=== PATIENT | female | born 1960 | race African-American/Black ===

== ENCOUNTER 2016-08-02 08:04 | Emergency (ER) ==
[2016-08-02] MEDS ORDERED: LASIX IV ONE (08:15)
[2016-08-02] MEDS ORDERED: NITROGLYCERIN TOP ONE (08:20)
[2016-08-02] MEDS ORDERED: LASIX ONE ×2 (08:21→08:27)
[2016-08-02] MEDS ORDERED: NITROGLYCERIN ONE (08:21)
[2016-08-02 08:23] VITALS: BP 197/123
--- NOTE | 2016-08-02 09:01 | Diag Imaging Result Document ---
PROCEDURE NAME: CHEST-PORTABLE - 08/02/2016 PORTABLE CHEST: COMPARISON: Compared to 06/21/2016. FINDINGS: The lungs are well expanded. There is a left sided pacemaker. The heart is mildly prominent. The vessels are not distended. No consolidation. No pleural effusions identified. IMPRESSION: Stable mild cardiomegaly. [facility]
[2016-08-02 09:08] LABS: MANUAL DIFF NEEDED? NO
[2016-08-02 09:11] LABS: BASO% 0.8 % (0.0-0.8); EOS# 0.25 X1000 (0.0-0.7); EOS% 3.8 % (0.0-10.0); HEMATOCRIT 41.9 % (37.0-47.0); HEMOGLOBIN 13.7 g/dL (12.0-16.0); IMM GRAN# 0.01 X1000 (0.0-0.04); IMM GRAN% 0.2 % (0.0-0.5); LYMPH# 1.79 X1000 (1.2-3.4); LYMPH% 27.1 % (20.5-51.1); MCH 32.1 PG (27-31); MCHC 32.7 g/dL (33-37); MCV 98.1 FL (81-99); MONO# 0.24 X1000 (0.11-0.59); MONO% 3.6 % (1.7-9.3); MPV 10.3 FL (7.4-10.4); NEUT% 64.5 % (42.2-75.2); PLT 225 X1000 (130-400); RBC 4.27 XMIL (4.2-5.4)
[2016-08-02 09:35] LABS: AGAP 16; ALBUMIN 4.7 g/dL (3.5-5.0); ALKALINE PHOSPHATASE 93 U/L (32-104); BUN 16 mg/dL (8-22); CALCIUM 10.1 mg/dL (8.8-10.2); CHLORIDE 104 mmol/L (98-107); CK PROFILE 106 U/L (24-173); COSMO 289; GOT 30 U/L (10-30); GPT 32 U/L (10-36); MAGNESIUM 1.8 mg/dL (1.5-2.7); POTASSIUM 3.3 mmol/L (3.5-5.1); SODIUM 144 mmol/L (136-145); TCO2 25 mmol/L (25-35)
--- NOTE | 2016-08-02 09:47 | EKG Report ---
Test Performed on : 08/02/2016 08:31:27 AM Test Reason : CHEST PAIN Blood Pressure : / mmHG Vent. Rate : 084 BPM Atrial Rate : 084 BPM P-R Int : 160 ms QRS Dur : 108 ms QT Int : 402 ms P-R-T Axes : 047 031 031 degrees QTc Int : 475 ms Normal sinus rhythm. Biatrial enlargement Incomplete left bundle branch block ST & T wave abnormality, consider lateral ischemia Prolonged QT Abnormal ECG When compared with ECG of 21-JUN-2016 06:30, No significant change was found Unconfirmed Result
[2016-08-02 09:48] LABS: INR 0.91 (0.86-1.15); PROTIME 12.6 Seconds (12.1-15.5)
[2016-08-02 09:49] LABS: PTT PL 35.5 Seconds (22.6-43.9)
--- NOTE | 2016-08-02 10:28 | PROVIDER DOCUMENTATION ---
HPI-Abdominal Pain/GI Problem <Jordan Wong - Last Filed: 08/02/16 11:33> - General Source: patient - History of Present Illness-ABD Nature of Presenting Problems: 56 yo AAF presents to ED with cc of RLQ pain and SOB. Pt has hx of CHF. Pt states she awoke at 0300 with RLQ pain and became SOB. Upon arrival to ED, pt is in mild distress. Abdominal Pain Onset Location: reports: RLQ Pain Radiation: reports: no radiation Severity in ED: reports: moderate Onset/Duration: reports: abrupt, 4-6 hours ago Timing: reports: still present Activities at Onset: reports: none Associated Symptoms: reports: constipation Rectal Pain: reports: none <Trisha Miramontes - Last Filed: 08/02/16 11:38> - General Chief Complaint: Shortness of Breath Stated Complaint: dyspnea Time Seen by Provider: 08/02/16 09:31 Allergies/Adverse Reactions: Patient Allergies Allergy/AdvReac Type Severity Reaction Status Date / Time promethazine HCl * Allergy JERKING Verified 06/21/16 06:12 [From Phenergan] Home Medications: Home Medication List Medication Instructions Recorded Confirmed Last Taken Type Buspirone [Buspar] 10 mg PO TID PRN 10/08/13 06/21/16 05/04/16 08:00 History Clopidogrel [Plavix] 75 mg PO DAILY 10/08/13 06/21/16 1 Day Ago History Omeprazole 20 mg PO DAILY@0700 10/08/13 06/22/16 1 Day Ago History Pregabalin [Lyrica] 225 mg PO QHS 10/08/13 06/21/16 1 Day Ago History ATORVAstatin [Lipitor] 80 mg PO DAILY #0 tablet 11/13/13 06/21/16 1 Day Ago Rx Aspirin [Ecotrin] 81 mg PO DAILY 01/18/14 06/21/16 1 Day Ago History Trazodone [Desyrel] 200 mg PO QHS 08/09/15 06/21/16 1 Day Ago History Ferrous Sulfate E.r. [Slow-Fe] 160 mg PO BID 01/01/16 06/21/16 1 Day Ago History Potassium Chloride 20 meq PO DAILY 01/01/16 06/21/16 1 Day Ago History Meloxicam [Mobic] 7.5 mg PO BID PRN 05/04/16 06/21/16 1 Day Ago History Tizanidine [Zanaflex] 12 mg PO QHS 05/04/16 06/21/16 1 Day Ago History Tramadol [Ultram] 50 mg PO BID 06/21/16 06/21/16 1 Day Ago History Aspirin [Aspirin EC] 81 mg PO DAILY 06/22/16 06/22/16 Unknown History CefDINIR [Omnicef] 300 mg PO BID #14 capsule 06/22/16 Unknown Rx Furosemide [Lasix] 20 mg PO DAILY PRN PRN 06/22/16 06/22/16 06/20/16 History Ondansetron HCl 4 mg PO Q8H PRN PRN 06/22/16 06/22/16 Unknown History Sacubitril/Valsartan [Entresto 24 1 each PO BID #60 tablet 06/22/16 Unknown Rx mg-26 mg Tablet] Acetaminophen with Codeine 1 each PO Q6H PRN PRN #20 tablet 08/02/16 Unknown Rx [Tylenol with Codeine #3 Tablet] Review of Systems - Adult - REVIEW OF SYSTEMS - ADULT Constitutional: reports: no symptoms reported. denies: chills, fever Eyes: reports: no symptoms reported. denies: blurred vision, double vision Ears, Nose, Mouth & Throat: reports: no symptoms reported. denies: ear discharge, sinus problem Cardiovascular: reports: no symptoms reported. denies: chest pain, palpitations Respiratory: reports: shortness of breath Gastrointestinal: reports: abdominal pain (RLQ) Genitourinary: reports: no symptoms reported. denies: discharge, flank pain Musculoskeletal: reports: no symptoms reported. denies: bone pain, joint pain Integumentary: reports: no symptoms reported. denies: hives, itching Neurological: reports: no symptoms reported. denies: ataxia, loss of balance Psychiatric: reports: no symptoms reported. denies: anxiety, depression Endocrine: reports: no symptoms reported. denies: cold intolerance, heat intolerance Hematologic/Lymphatic: reports: no symptoms reported. denies: blood clots, low blood count Allergic/Immunologic: reports: no symptoms reported. denies: allergic reactions , eczema All Other Systems: Reviewed and Negative <Trisha Miramontes - Last Filed: 08/02/16 11:38> Past History - Adult - PAST MEDICAL HISTORY-ADULT Review of Records: reports: Old Records Reviewed, Nursing Assessment Review, Medications Reviewed Major Childhood Illnesses: reports: denies history Cardiovascular: reports: CAD, CHF (LAST EF OF 20% 06/11/2016 ), HTN, hyperlipidemia, pacemaker (defib), other Respiratory: reports: denies history, other (PULMONARY HTN) Gastrointestinal: reports: GERD Obstetrical/Gynecological: reports: denies history Genitourinary: reports: denies history Musculoskeletal: reports: other (fibromyalgia) Neurological: reports: CVA (10/2013) Endocrine/Immune: reports: thyroid disorder (hypo) Other Conditions: reports: denies history - PRIOR SURGERIES/PROCEDURES Surgical/Procedure History: reports: cardiac stent, hysterectomy, other ( defibulator placement/endarectomy) - PRIOR HOSPITALIZATIONS Prior Hospitalizations: reports: none - IMMUNIZATION STATUS Childhood Immunizations: UTD, See Nurse Assessment Flu Vaccine: See Nurse Assessment - FAMILY HISTORY Family History: reviewed, not pertinent <Trisha Miramontes - Last Filed: 08/02/16 11:38> Physical Exam-General - PHYSICAL EXAM-ADULT Initial Vital Signs Reviewed: Yes - CONSTITUTIONAL General Appearance: alert, mild distress - EYES Eyes: PERRL/EOMI, pink conjunctivae - HEAD, EARS, NOSE, MOUTH & THROAT HENMT: normocephalic/atraumatic, moist mucous membranes - NECK Neck: non-tender, full range of motion, supple - RESPIRATORY Respiratory: no respiratory distress, no accessory muscle use - CARDIOVASCULAR Cardiovascular: normal peripheral pulses, regular rate, rhythm - CHEST (BREASTS) Chest/Breast: deferred - GASTROINTESTINAL (ABDOMEN) Abdominal Exam: normal bowel sounds, non tender, soft - GENITOURINARY Female Genitalia/Pelvic Exam: deferred Rectal Exam: normal exam Hemoccult Exam: heme negative stool - LYMPHATIC Lymphatic: no adenopathy - MUSCULOSKELETAL Back Exam: normal inspection, no CVA tenderness, no vertebral tenderness Extremity: normal range of motion, non-tender, normal gait - SKIN Integumentary: normal color, normal turgor, warm/dry - NEUROLOGIC Neurologic: grossly normal, no motor/sensory deficits - PSYCHIATRIC Psych/Mental Status: normal mood/affect, normal thought content, normal thought process, oriented x 3 <Trisha Miramontes - Last Filed: 08/02/16 11:38> Progress - PLAN OF CARE/RESULTS Progress/Plan/Lab Results: Vital Signs - 24 hr 08/02/16 08:07 Temperature 98 F Pulse Rate 87 Respiratory 24 Rate Blood Pressure 197/123 O2 Sat by Pulse 93 L Oximetry Orders Category Date Time Status Cardiac Monitoring DIRECTED Care 08/02/16 08:25 Active Oxygen Therapy- ED Nursing DIRECTED Care 08/02/16 08:25 Active Saline Loc NOW Care 08/02/16 08:25 Active ABDOMEN FLAT/UPRIGHT [RAD] Stat Exams 08/02/16 10:22 Draft CHEST-PORTABLE [RAD] Stat Exams 08/02/16 08:25 Draft cxr [CHEST-2 VIEWS] [RAD] Stat Exams 08/02/16 10:23 Draft CBC WITH ELECTRONIC DIFF [HEME] Stat Lab 08/02/16 08:45 Completed CK PROFILE [SP CHEM] Stat Lab 08/02/16 08:45 Completed COMPREHENSIVE METABOLIC PANEL [CHEM] Stat Lab 08/02/16 08:45 Completed MAGNESIUM [CHEM] Stat Lab 08/02/16 08:45 Completed OCCULT BLOOD SCREEN STOOL PL Stat Lab 08/02/16 10:13 Completed PRO B-NATRIURETIC PEPTIDE Stat Lab 08/02/16 08:[address]IME WITH INR [address] [COAG] Stat Lab 08/02/16 08:[address] [COAG] Stat Lab 08/02/16 08:45 Completed TROPONIN T Stat Lab 08/02/16 08:45 Completed UA [URINALYSIS DIPSTICK ONLY PL] [URINALYSIS] Stat Lab 08/02/16 10:58 Completed Furosemide [Lasix] Med 08/02/16 08:27 Discontinued 100 mg .ROUTE .STK-MED ONE Furosemide [Lasix] Med 08/02/16 08:21 Discontinued 80 mg .ROUTE .STK-MED ONE Furosemide [Lasix] Med 08/02/16 08:15 Discontinued 80 mg IV NOW ONE Nitroglycerin Med 08/02/16 08:21 Discontinued 1 inch .ROUTE .STK-MED ONE Nitroglycerin Med 08/02/16 08:20 Discontinued 1 inch TOP NOW ONE EKG [EKG] Stat Ther 08/02/16 08:25 Draft Laboratory Tests 08/02/16 08/02/16 08/02/16 08:45 08:45 08:45 WBC RBC Hgb Hct MCV MCH MCHC RDW Std Deviation Plt Count MPV Immature Gran % (Auto) Neut % (Auto) Lymph % (Auto) [place] % (Auto) Eos % (Auto) Baso % (Auto) Immature Gran # (Auto) Neut # (Auto) Lymph # (Auto) [place] # (Auto) Eos # (Auto) Baso # (Auto) PT INR APTT (Factor Assay) Sodium 144 Potassium 3.3 L Chloride 104 Carbon Dioxide 25 Anion Gap 16 BUN 16 Creatinine 0.9 Estimated GFR/1.73 m2 > 60 BUN/Creatinine Ratio 18 Glucose 124 H Calculated Osmolality 289 Calcium 10.1 Magnesium 1.8 Total Bilirubin 0.80 AST 30 ALT 32 Alkaline Phosphatase 93 Creatine Kinase 106 Troponin T < 0.010 Nbk-[id number]-Xfamfbdazgc Pept 3046 H Total Protein 8.0 Albumin 4.7 Globulin 3.0 Albumin/Globulin Ratio 1.0 Urine Source Urine Color Urine Clarity Urine pH Ur Specific [place] Urine Protein Urine Ketones Urine Blood Urine Nitrite Urine Bilirubin Urine Urobilinogen Urine WBC Urine Glucose Stool Occult Blood 08/02/16 08/02/16 08/02/16 08:45 08:45 10:13 WBC 6.61 RBC 4.27 Hgb 13.7 Hct 41.9 MCV 98.1 MCH 32.1 H MCHC 32.7 L RDW Std Deviation 14.6 H Plt Count 225 MPV 10.3 Immature Gran % (Auto) 0.2 Neut % (Auto) 64.5 Lymph % (Auto) 27.1 [place] % (Auto) 3.6 Eos % (Auto) 3.8 Baso % (Auto) 0.8 Immature Gran # (Auto) 0.01 Neut # (Auto) 4.27 Lymph # (Auto) 1.79 [place] # (Auto) 0.24 Eos # (Auto) 0.25 Baso # (Auto) 0.05 PT 12.6 INR 0.91 APTT (Factor Assay) 35.5 Sodium Potassium Chloride Carbon Dioxide Anion Gap BUN Creatinine Estimated GFR/1.73 m2 BUN/Creatinine Ratio Glucose Calculated Osmolality Calcium Magnesium Total Bilirubin AST ALT Alkaline Phosphatase Creatine Kinase Troponin T Nky-H-Ujppcamrkpy Pept Total Protein Albumin Globulin Albumin/Globulin Ratio Urine Source Urine Color Urine Clarity Urine pH Ur Specific [place] Urine Protein Urine Ketones Urine Blood Urine Nitrite Urine Bilirubin Urine Urobilinogen Urine WBC Urine Glucose Stool Occult Blood NEGATIVE 08/02/16 10:58 WBC RBC Hgb Hct MCV MCH MCHC RDW Std Deviation Plt Count MPV Immature Gran % (Auto) Neut % (Auto) Lymph % (Auto) [place] % (Auto) Eos % (Auto) Baso % (Auto) Immature Gran # (Auto) Neut # (Auto) Lymph # (Auto) [place] # (Auto) Eos # (Auto) Baso # (Auto) PT INR APTT (Factor Assay) Sodium Potassium Chloride Carbon Dioxide Anion Gap BUN Creatinine Estimated GFR/1.73 m2 BUN/Creatinine Ratio Glucose Calculated Osmolality Calcium Magnesium Total Bilirubin AST ALT Alkaline Phosphatase Creatine Kinase Troponin T Qjx-A-Johcteaacop Pept Total Protein Albumin Globulin Albumin/Globulin Ratio Urine Source VOIDED Urine Color YELLOW Urine Clarity CLEAR Urine pH 8.0 Ur Specific [place] 1.020 Urine Protein NEGATIVE Urine Ketones NEGATIVE Urine Blood NEGATIVE Urine Nitrite NEGATIVE Urine Bilirubin NEGATIVE Urine Urobilinogen NORMAL Urine WBC NEGATIVE Urine Glucose NEGATIVE Stool Occult Blood - REASSESSMENT Reassessment #1 Time Reassessed: 10:30 Status: improving Reassessment Comment: check on status of SOB after Lasix, perform hemoccult - EKG 1 Time of EKG reading by physician:: 07:31 EKG Read and Signed by:: Jordan Wong EKG Interpretation (*Must complete 3 of following elements*): Abnormal ( biatrial enlargement. ST & T wave abnormality, consider lateral ischemia. prolonged QT.) Rate: 84 Rhythm: sinus QRS: LBB (incomplete) - XRAY 1 XRAY Study: Chest Impression: Normal XRAY Interpretation: NAD (per radiology) 2 XRAY Study: Abdomen Impression: Normal XRAY Interpretation: NAD (per radiology) <Trisha Miramontes - Last Filed: 08/02/16 11:38> Departure - Departure Time of Disposition Order: 11:33 Certified Medical Emergency: Emergent <Jordan Wong - Last Filed: 08/02/16 11:33> <Trisha Miramontes - Last Filed: 08/02/16 11:38> - Departure DIAGNOSIS: Abdominal pain Qualifiers: Abdominal location: right lower quadrant Qualified Code(s): R10.31 - Right lower quadrant pain CHF (congestive heart failure) Qualifiers: Congestive heart failure type: systolic Congestive heart failure chronicity: chronic Qualified Code(s): I50.22 - Chronic systolic (congestive) heart failure Disposition: HOME 01 Additional Instructions: ED Follow Up Instructions: You have been treated by a care provider in the Emergency Department. These instructions are being provided to you so you can have an understanding of how to care for yourself upon discharge. Upon discharge from the Emergency Department, you are responsible for making arrangements for follow-up care by a physician of your choice. Take all prescribed medications as directed. Return to the Emergency Department immediately for any new or worsening symptoms. You may call the Physician Referral phone number at [phone] to obtain a list of Physicians who are taking new patients. Prescriptions: Acetaminophen with Codeine [Tylenol with Codeine #3 Tablet] 1 each PO Q6H PRN PRN #20 tablet PRN Reason: Pain Referrals: Jorden Quintanilla [Primary Care Provider] - Attestation - Scribe Verification/Attestation Scribe:: Trisha Miramontes Acting as Scribe for:: Jordan Wong Scribe documention review:: This chart was documented by a scribe and accurately reflects the service the provider performed and the decisions made by the provider. - Physician/ LAURIE Attestation Patient care was provided by Advanced Practice Provider:: No <Trisha Miramontes - Last Filed: 08/02/16 11:38> Physician Attestation
[2016-08-02 10:41] LABS: OCCULT BLOOD 1 NEGATIVE (NEGATIVE)
[2016-08-02 11:08] LABS: URINE SOURCE VOIDED
[2016-08-02 11:16] LABS: BILIRUBIN URINE NEGATIVE (NEGATIVE); BLOOD URINE NEGATIVE (NEGATIVE); CLARITY CLEAR (CLEAR); COLOR YELLOW; GLUCOSE URINE NEGATIVE (NEGATIVE); LEUKOCYTES URINE NEGATIVE (NEGATIVE); NITRITE URINE NEGATIVE (NEGATIVE); PROTEIN URINE NEGATIVE (NEGATIVE); UROBILINOGEN URINE NORMAL
--- NOTE | 2016-08-02 11:29 | Diag Imaging Result Document ---
PROCEDURE NAME: CHEST-2 VIEWS - 08/02/2016 FRONTAL AND LATERAL CHEST, TWO VIEWS: FINDINGS: The patient has a left-sided pacemaker. The lungs are well expanded. The heart is not borderline mildly prominent. The vessels are not distended. No pneumonia. No pleural effusions. There are several calcified right paratracheal lymph nodes. Mild scoliosis. IMPRESSION: No acute abnormality MTDD
--- NOTE | 2016-08-02 11:34 | Diag Imaging Result Document ---
PROCEDURE NAME: ABDOMEN FLAT/UPRIGHT - 08/02/2016 FLAT AND UPRIGHT, TWO VIEWS: FINDINGS: No free air beneath the diaphragm. No bowel obstruction. No organomegaly. Mild scoliosis. Moderate atherosclerosis. There are several pelvic calcifications believed to be phleboliths. IMPRESSION: No acute abnormality. [facility]
[2016-08-02] MEDS ORDERED: TYLENOL WITH CODEINE #3 PO ONE (12:08)
== END 2016-08-02 12:21 | disposition home or self-care (01) ==
LOC: P.ED 08:04
DX: I50.22 Chronic systolic (congestive) heart failure (principal); R10.31 Right lower quadrant pain; R06.02 Shortness of breath; I25.10 Atherosclerotic heart disease of native coronary artery without angina pectoris; I10 Essential (primary) hypertension; E78.5 Hyperlipidemia, unspecified; Z95.810 Presence of automatic (implantable) cardiac defibrillator; I27.2 Other secondary pulmonary hypertension; K21.9 Gastro-esophageal reflux disease without esophagitis; M79.7 Fibromyalgia; Z86.73 Personal history of transient ischemic attack (TIA), and cerebral infarction without residual deficits; E03.9 Hypothyroidism, unspecified; Z95.5 Presence of coronary angioplasty implant and graft; R94.31 Abnormal electrocardiogram [ECG] [EKG]; Z79.899 Other long term (current) drug therapy; Z79.1 Long term (current) use of non-steroidal anti-inflammatories (NSAID); Z79.02 Long term (current) use of antithrombotics/antiplatelets; Z79.82 Long term (current) use of aspirin
CPT/HCPCS: 71010; 71020; 74020; 80053; 81003; 82270; 82550; 83735; 83880; 84484; 85025; 85610; 85730; 93005; 96374; J1940

== ENCOUNTER 2016-09-09 08:50 | Inpatient (IN) ==
[2016-09-09] MEDS ORDERED: ASPIRIN PO ONE (09:24)
--- NOTE | 2016-09-09 09:32 | EKG Report ---
Test Performed on : 09/09/2016 09:10:44 AM Test Reason : cp Blood Pressure : / mmHG Vent. Rate : 084 BPM Atrial Rate : 084 BPM P-R Int : 164 ms QRS Dur : 106 ms QT Int : 400 ms P-R-T Axes : 053 000 119 degrees QTc Int : 472 ms Sinus rhythm. with premature atrial complexes. Moderate voltage criteria for LVH, may be normal variant Possible Inferior infarct (cited on or before 02-SEP-2016) T wave abnormality, consider lateral ischemia Abnormal ECG When compared with ECG of 02-SEP-2016 07:23, No significant change was found Unconfirmed Result
--- NOTE | 2016-09-09 10:28 | Diag Imaging Result Document ---
PROCEDURE NAME: FLAT/UPRIGHT ABD/1 VIEW CHEST - 09/09/2016 FLAT AND UPRIGHT WITH CHEST, THREE VIEWS: FINDINGS: The lungs are well expanded. There is a left-sided pacemaker. No pneumonia. No free air beneath the diaphragm. Mild scoliosis. No bowel obstruction. No organomegaly. There are several pelvic calcifications consistent with phleboliths. IMPRESSION: No acute abnormality.
[2016-09-09] MEDS ORDERED: MORPHINE IV ONE ×2 (12:28→18:30)
[2016-09-09] MEDS ORDERED: ZOFRAN IV ONE (12:28)
[2016-09-09 12:45] LABS: MANUAL DIFF NEEDED? NO
[2016-09-09 12:53] LABS: BASO% 0.7 % (0.0-0.8); EOS# 0.23 X1000 (0.0-0.7); HEMATOCRIT 38.1 % (37.0-47.0); HEMOGLOBIN 12.7 g/dL (12.0-16.0); LYMPH# 1.91 X1000 (1.2-3.4); LYMPH% 33.3 % (20.5-51.1); MCH 32.6 PG (27-31); MCHC 33.3 g/dL (33-37); MCV 97.7 FL (81-99); MONO# 0.43 X1000 (0.11-0.59); MONO% 7.5 % (1.7-9.3); MPV 10.1 FL (7.4-10.4); NEUT% 54.5 % (42.2-75.2); PLT 288 X1000 (130-400)
[2016-09-09 13:10] LABS: ALBUMIN 4.5 g/dL (3.5-5.0); CALCIUM 10.2 mg/dL (8.8-10.2); POTASSIUM 4.8 mmol/L (3.5-5.1); TOTAL BILIRUBIN 1.1 mg/dL (0.20-1.00); TOTAL PROTEIN 7.8 g/dL (6.3-8.3)
--- NOTE | 2016-09-09 13:18 | PROVIDER DOCUMENTATION ---
This chart was entered by Hermann Norris Scribe, acting as scribe for Murray Queen MD. HPI-Chest Pain - General Chief Complaint: Chest Pain Stated Complaint: KIDNEY PAIN,CP,ABD,LEG PAIN Time Seen by Provider: 09/09/16 09:21 Source: patient Allergies/Adverse Reactions: Patient Allergies Allergy/AdvReac Type Severity Reaction Status Date / Time promethazine HCl * Allergy JERKING Verified 09/09/16 11:49 [From Phenergan] Home Medications: Home Medication List Medication Instructions Recorded Confirmed Last Taken Type Omeprazole 20 mg PO DAILY@0700 10/08/13 09/09/16 1 Day Ago History Aspirin [Ecotrin] 81 mg PO DAILY 01/18/14 09/09/16 1 Day Ago History Potassium Chloride 20 meq PO DAILY 01/01/16 09/09/16 1 Day Ago History Atorvastatin Calcium [Atorvastatin 80 mg PO DAILY 09/09/16 09/09/16 Unknown History Calcium] Azithromycin [Azithromycin] 1 each PO DIRECTED 09/09/16 09/09/16 Unknown History Buspirone HCl 10 mg PO TID 09/09/16 09/09/16 Unknown History Cilostazol [Cilostazol] 100 mg PO BID 09/09/16 09/09/16 Unknown History Clopidogrel Bisulfate [Clopidogrel] 75 mg PO DAILY 09/09/16 09/09/16 Unknown History Furosemide [Furosemide] 20 mg PO DAILY 09/09/16 09/09/16 Unknown History Hydrocodone/Acetaminophen [[place] 1 each PO BID PRN 09/09/16 09/09/16 Unknown History 5-325 Tablet] Isosorbide Dinitrate [Isosorbide 30 mg PO DAILY 09/09/16 09/09/16 Unknown History Dinitrate] Labetalol [Trandate] 200 mg PO BID 09/09/16 09/09/16 Unknown History Meloxicam [Meloxicam] 7.5 mg PO DAILY 09/09/16 09/09/16 Unknown History Ondansetron HCl [Zofran] 4 mg PO Q8H PRN PRN 09/09/16 09/09/16 Unknown History Oxycodone HCl/Acetaminophen 1 each PO Q6H PRN PRN 09/09/16 09/09/16 Unknown History [Endocet 7.5-325 mg Tablet] Pregabalin [Lyrica] 225 mg PO DAILY 09/09/16 09/09/16 Unknown History Sacubitril/Valsartan [Entresto 24 1 each PO DAILY 09/09/16 09/09/16 Unknown History mg-26 mg Tablet] Tizanidine HCl [Tizanidine HCl] 4 mg PO TID 09/09/16 09/09/16 Unknown History Trazodone HCl [Trazodone HCl] 100 mg PO QHS 09/09/16 09/09/16 Unknown History - History of Present Illness-CP Nature of Presenting Problem: patient is a 56 y/o F that presents to the ER per request of . patient was schedule for debora cath today but sent here due to elevated kidney function. Patient reports having chest pain x 3 months. Leg pain( bilaterally), abdominal pain, and pain all over. denies shortness of breath. Had stress test over 3 months ago and was negative. Location: reports: substernal Chest Pain Radiation: reports: no radiation Quality of Pain: reports: dull Severity in ED: moderate Onset/Duration: gradual, other (3 months) Timing: still present, constant Context/Activities at Onset: reports: none Modifying Factors: improves with: nothing Associated Symptoms: reports: back pain. denies: dizziness, edema, fatigue, fever/chills, nausea, shortness of breath, vomiting Aspirin Treatment Today: 325 mg x 1, provided by ED Prior Chest Pain/Cardiac Workup: reports: stress test Similar Symptoms Previously?: Yes Recently Seen Here or By Another Healthcare Provider: Yes Review of Systems - Adult - REVIEW OF SYSTEMS - ADULT Constitutional: denies: chills, fever Eyes: reports: no symptoms reported Ears, Nose, Mouth & Throat: reports: no symptoms reported Cardiovascular: reports: chest pain. denies: palpitations, syncope Respiratory: denies: cough, shortness of breath, wheezing Gastrointestinal: reports: abdominal pain. denies: diarrhea, nausea, vomiting Genitourinary: reports: flank pain (bilateral). denies: dysuria, frequency Musculoskeletal: reports: muscle aches. denies: back pain, neck pain Integumentary: reports: no symptoms reported Neurological: reports: no symptoms reported Psychiatric: reports: no symptoms reported Endocrine: reports: no symptoms reported Hematologic/Lymphatic: reports: no symptoms reported Allergic/Immunologic: reports: no symptoms reported All Other Systems: Reviewed and Negative Past History - Adult - PAST MEDICAL HISTORY-ADULT Review of Records: reports: Old Records Reviewed, Nursing Assessment Review, Medications Reviewed Cardiovascular: reports: CAD, CHF, HTN, hyperlipidemia, pacemaker, other Gastrointestinal: reports: GERD Musculoskeletal: reports: other Neurological: reports: CVA Endocrine/Immune: reports: thyroid disorder - PRIOR SURGERIES/PROCEDURES Surgical/Procedure History: reports: cardiac stent, hysterectomy, other - IMMUNIZATION STATUS Childhood Immunizations: UTD, See Nurse Assessment Flu Vaccine: See Nurse Assessment - FAMILY HISTORY Family History: reviewed, not pertinent - SOCIAL HISTORY Smoking: cigarettes, less than 1 pack/day Living Situation: family Physical Exam-General - PHYSICAL EXAM-ADULT Initial Vital Signs Reviewed: Yes - CONSTITUTIONAL General Appearance: alert, no apparent distress - EYES Eyes: PERRL/EOMI, pink conjunctivae - HEAD, EARS, NOSE, MOUTH & THROAT HENMT: normocephalic/atraumatic, moist mucous membranes, normal ENT inspection - NECK Neck: full range of motion, normal inspection - RESPIRATORY Respiratory: lungs clear, normal breath sounds, no respiratory distress, no accessory muscle use - CARDIOVASCULAR Cardiovascular: regular rate, rhythm, no edema, no murmur - GASTROINTESTINAL (ABDOMEN) Abdominal Exam: normal bowel sounds, non tender, soft - MUSCULOSKELETAL Back Exam: no CVA tenderness, no vertebral tenderness Extremity: normal range of motion, no calf tenderness, normal capillary refill, pelvis stable - SKIN Integumentary: normal color, warm/dry - NEUROLOGIC Neurologic: grossly normal, no motor/sensory deficits - PSYCHIATRIC Psych/Mental Status: normal mood/affect, normal thought content, normal thought process, oriented x 3 Progress - PLAN OF CARE/RESULTS Progress/Plan/Lab Results: Vital Signs - 8 hr 09/09/16 09:14 09/09/16 10:42 09/09/16 11:13 Temperature 98.2 F Pulse Rate 80 77 73 Respiratory Rate 16 19 15 Blood Pressure 156/97 154/118 154/118 O2 Sat by Pulse Oximetry 98 96 98 09/09/16 12:45 Temperature Pulse Rate 78 Respiratory Rate 27 H Blood Pressure 154/118 O2 Sat by Pulse Oximetry 96 Laboratory Results - last 24 hr 09/09/16 09/09/16 09/09/16 11:53 11:53 11:53 WBC 5.74 RBC 3.90 L Hgb 12.7 Hct 38.1 MCV 97.7 MCH 32.6 H MCHC 33.3 RDW Std Deviation 14.7 H Plt Count 288 MPV 10.1 Immature Gran % (Auto) 0.0 Neut % (Auto) 54.5 Lymph % (Auto) 33.3 [place] % (Auto) 7.5 Eos % (Auto) 4.0 Baso % (Auto) 0.7 Immature Gran # (Auto) 0.00 Neut # (Auto) 3.13 Lymph # (Auto) 1.91 [place] # (Auto) 0.43 Eos # (Auto) 0.23 Baso # (Auto) 0.04 D-Dimer < 0.10 Sodium 141 Potassium 4.8 Chloride 101 Carbon Dioxide 25 Anion Gap 15 BUN 53 H Creatinine 1.8 H Estimated GFR/1.73 m2 35 BUN/Creatinine Ratio 29 Glucose 89 Calculated Osmolality 295 Calcium 10.2 Total Bilirubin 1.10 H AST 17 ALT 22 Alkaline Phosphatase 68 Creatine Kinase 119 Troponin T Total Protein 7.8 Albumin 4.5 Globulin 3.3 Albumin/Globulin Ratio 1.4 Amylase 141 Lipase 59 09/09/16 11:53 WBC RBC Hgb Hct MCV MCH MCHC RDW Std Deviation Plt Count MPV Immature Gran % (Auto) Neut % (Auto) Lymph % (Auto) [place] % (Auto) Eos % (Auto) Baso % (Auto) Immature Gran # (Auto) Neut # (Auto) Lymph # (Auto) [place] # (Auto) Eos # (Auto) Baso # (Auto) D-Dimer Sodium Potassium Chloride Carbon Dioxide Anion Gap BUN Creatinine Estimated GFR/1.73 m2 BUN/Creatinine Ratio Glucose Calculated Osmolality Calcium Total Bilirubin AST ALT Alkaline Phosphatase Creatine Kinase Troponin T < 0.010 Total Protein Albumin Globulin Albumin/Globulin Ratio Amylase Lipase Orders Category Date Time Status Saline Loc DIRECTED Care 09/09/16 09:24 Active NPO Diet 09/09/16 09:24 Active flat [FLAT/UPRIGHT ABD/1 VIEW CHEST] [RAD] Stat Exams 09/09/16 09:21 Completed AMYLASE [CHEM] Stat Lab 09/09/16 11:53 Completed CBC WITH ELECTRONIC DIFF [HEME] Stat Lab 09/09/16 11:53 Completed CK PROFILE [SP CHEM] Stat Lab 09/09/16 11:53 Completed COMPREHENSIVE METABOLIC PANEL [CHEM] Stat Lab 09/09/16 11:53 Completed D-DIMER [CHEM] Stat Lab 09/09/16 11:53 Completed LIPASE [CHEM] Stat Lab 09/09/16 11:53 Completed PRO B-NATRIURETIC PEPTIDE Stat Lab 09/09/16 11:53 Received TROPONIN T Stat Lab 09/09/16 11:53 Completed UA NIMS W/REFLEX CULT [URINALYSIS] Stat Lab 09/09/16 09:21 Uncollected URINE DRUG SCREEN Stat Lab 09/09/16 09:21 Uncollected Aspirin Med 09/09/16 09:24 Discontinued 325 mg PO NOW ONE Morphine Med 09/09/16 12:28 Discontinued 4 mg IV NOW ONE Ondansetron [Zofran] Med 09/09/16 12:28 Discontinued 4 mg IV NOW ONE EKG [EKG] Stat Ther 09/09/16 09:08 Draft spoke with , who recommended patient being admitted to hospitalist for work up of kidney function elevation. Result Diagrams: 09/09/16 11:53 09/09/16 11:53 - EKG 1 Time of EKG reading by physician:: 09:10 EKG Read and Signed by:: Murray Queen EKG Interpretation (*Must complete 3 of following elements*): Abnormal Rate: 84 Rhythm: Sinus rhythm with PACs [place]: normal QRS: [facility] [place] Interval: normal ST Wave: non-specific ST changes - XRAY 1 XRAY Study: Chest, Abdomen Impression: Normal XRAY Interpretation: nml - CONSULTS/PCP/HOSPITALIST Notification #1 *Consult/PCP/Hospitalist*: Admit to hospitalist Time Discussed: 13:18 Departure - Departure Time of Disposition Decision: 13:17 DIAGNOSIS: Chest pain, Renal insufficiency, Chest pain Disposition: ADMITTED INPATIENT 09 Certified Medical Emergency: Emergent Condition: Stable Referrals and Follow-Ups: None,PCP [Primary Care Provider] - This chart was documented by the indicated scribe, (Hermann Norris, Lala[place]) and accurately reflects the services I performed and decisions made by , Murray Queen MD, as attested by the provider's signature.
[2016-09-09 15:48] LABS: URINE CULTURE NEEDED? NO; URINE MICRO REVIEW NEEDED? NO; URINE SOURCE CLEAN CATCH
[2016-09-09 15:54] LABS: BILIRUBIN URINE NEGATIVE (NEGATIVE); BLOOD URINE NEGATIVE (NEGATIVE); COLOR YELLOW; GLUCOSE URINE NEGATIVE (NEGATIVE); LEUKOCYTES URINE NEGATIVE (NEGATIVE); NITRITE URINE NEGATIVE (NEGATIVE); PH URINE 5.5; PROTEIN URINE TRACE mg/dL (NEGATIVE); SP GRAVITY URINE 1.022; TURBIDITY URINE CLEAR (CLEAR); UROBILINOGEN URINE NORMAL (NORMAL)
[2016-09-09 15:55] LABS: UR EPITHELIAL CELLS <10 /HPF (<10); URINE BACTERIA NEGATIVE /HPF; URINE RBC <10 /HPF (<10); URINE WBC <10 /HPF (<10)
[2016-09-09 16:14] LABS: UR AMPHETAMINES QUAL PRESUMPTIVE POSITIVE (NONE DETECT); UR BARBITUATES QUAL NONE DETECTED (NONE DETECT); UR BENZODIAZEPIN QUAL NONE DETECTED (NONE DETECT); UR CANNABINOIDS QUAL NONE DETECTED (NONE DETECT); UR COCAINE QUAL NONE DETECTED (NONE DETECT); UR METHADONE QUAL NONE DETECTED (NONE DETECT); UR OPIATES QUAL PRESUMPTIVE POSITIVE (NONE DETECT); UR OXYCODONE QUAL NONE DETECTED (NONE DETECT); UR PCP QUAL NONE DETECTED (NONE DETECT)
[2016-09-09] MEDS ORDERED: TYLENOL PO PRN (17:24)
[2016-09-09] MEDS: NICODERM PATCH TD SCH (17:46)
[2016-09-09] MEDS: LOVENOX SUBQ SCH (17:46)
[2016-09-09] MEDS: PERCOCET-5 PO PRN (17:53)
[2016-09-09] MEDS: ZANAFLEX PO SCH (17:58)
[2016-09-09] MEDS: BUSPAR PO SCH (17:58)
[2016-09-09 18:02] LABS: PROTEIN CREAT RATIO 0.1; UR CREAT RANDOM 128.2 mg/dL (11-20); UR PROT RANDOM 16.5 mg/dL
[2016-09-09 19:09] LABS: HEMOGLOBIN A1C 5.4 % (4.8-6.0)
--- NOTE | 2016-09-09 19:26 | HISTORY AND PHYSICAL ---
NEWS COMMENTATOR: Dr. Jonathan Whitfield. CHIEF COMPLAINT: Chest pain. HISTORY OF PRESENT ILLNESS: Mrs. Reyes is a 56-year-old female with a history of generalized vasculopathy including carotid artery disease, coronary artery disease, peripheral artery disease, multiple other comorbidities who presents with about 3 months of chest pain. She reports she has multiple occasions a day of chest pain at rest which she describes as midsternal, radiating into her neck and back lasting 30 minutes at a time associated with nausea and shortness of breath as well as diaphoresis. She also reports lower extremity edema and orthopnea. She went to see Dr. Whitfield last week who was going to schedule her for left heart catheterization today however he called her today and said she needed to come to the ER for better workup and management as she had elevated creatinine. She also reports that she was having chest pain this morning, as well as right lower quadrant pain and bilateral lower extremity pain. She has been in the ER twice this month already for shortness of breath and chest pain. She has had an abdominal ultrasound, abdominal and pelvis CT all of which did not show anything acute. She had extremity arterial study done on 08/19/2016 which showed bilateral superficial femoral occlusive disease worse on the left. When she came to the ER today she was noted to have a creatinine of 1.8, but otherwise her lab work was unrevealing. We did review her creatinine from all of her previous admissions and it would seem that since 2016 she has had a baseline creatinine around 1.5-1.7. She is now going to be admitted for further treatment and evaluation. PAST MEDICAL HISTORY: 1. Ischemic cardiomyopathy. 2. Congestive heart failure, systolic. EF 20%. 3. Osteoarthritis. 4. Coronary artery disease. 5. History of [place]. 6. Hypertension. 7. Hyperlipidemia. 8. Esophageal stricture. 9. COPD. 10. Questionable history of DVTs. 11. Question CKD. PAST SURGICAL HISTORY: Hysterectomy, coronary stenting, AICD placement, right carotid endarterectomy. SOCIAL HISTORY: Patient continues to smoke a pack a day. She denies drug or alcohol use. She is and lives with her . FAMILY HISTORY: Both parents of VA, mother at 60 years old, father age unknown. REVIEW OF SYSTEMS: 14 point review of systems obtained and found to be negative with the exception of the HPI. ALLERGIES: To Phenergan. HOME MEDICATIONS: 81 mg aspirin daily. Atorvastatin 80 mg daily. BuSpar 10 mg t.i.d. Cilostazol 100 mg p.o. b.i.d. Clopidogrel 75 mg daily. Lasix 20 mg daily. [place] as directed. Isosorbide dinitrate 30 mg p.o. daily. Labetalol 200 mg p.o. b.i.d. Mobic 7.5 mg daily. Omeprazole 20 mg daily. Zofran 4 mg every 8 hours as needed. Oxycodone acetaminophen tablets 1 every 6 hours as needed. KCl 20 mEq p.o. daily. Lyrica 225 mg p.o. daily. Entresto 1 p.o. daily. Tizanidine 4 mg t.i.d. Trazodone 100 mg at bedtime. PHYSICAL EXAMINATION: VITAL SIGNS: Blood pressure is 137/92, heart rate is 84, respiratory rate 22, O2 saturation 96% on room air, temperature is 98.2 degrees. GENERAL: This is a disheveled and unkempt appearing, 56-year-old female, lying in the hospital bed in no acute distress. NEUROLOGIC: The patient is awake, alert, oriented. She follows commands without focal deficits. HEENT: Head atraumatic and normocephalic. Her pupils are equal, round, reactive to light. Oral mucosa is moist. Trachea is midline. There is no JVD. No carotid bruits. CHEST: Diminished at the bases but clear to auscultation bilaterally. CVS: Regular rate and rhythm. S1, S2 is noted. GI: Soft, nondistended. Right lower quadrant tenderness to palpation. EXTREMITIES: Without edema, clubbing or cyanosis. Pulses are palpable bilaterally. DIAGNOSTIC DATA: Chest and abdomen x-ray did not show anything acute. EKG shows sinus rhythm with PVCs and inferior Q-waves. Nonspecific ST-T wave. WBC 5.74, hemoglobin 12.7, hematocrit 38.1, platelet count 288,000. D-dimer negative. Sodium 141, potassium 4.8, chloride 101, CO2 25, anion gap 15. BUN 53, creatinine 1.8. Glucose 89, calcium 10.2, bilirubin 1.1. AST 17 and ALT 22, alkaline phosphatase 68. CK 119. Troponin negative. ProBNP 647. Albumin 4.5, lipase 59. ASSESSMENT/PLAN: 1. Chest pain: The patient was scheduled for left heart catheterization today. We will defer ischemic evaluation to Cardiology while continuing her medications. We will trend enzymes. We will monitor telemetry and keep her NPO after midnight. 2. Renal insufficiency: Looks to be chronic but we will go ahead and check a renal ultrasound and check urine electrolytes. We will withhold her nephrotoxic medications at this time and trend her creatinine, may consider Nephrology consultation if no improvement. 3. Congestive heart failure: Patient seems to be euvolemic on physical exam, and chest x-ray at this time. Will monitor strict fashion as and daily weights and continue her home medications. 4. Coronary artery disease: As above, with stress lifestyle modification and continue that education daily. 5. Hypertension: Chronic and stable, continue home medications. 6. Hyperlipidemia. Patient is on high dose intensity statin. We will continue. 7. Chronic obstructive pulmonary disease: Not in exacerbation, continue aggressive pulmonary toilet and breathing treatments as necessary. 8. Nicotine dependence: Patient has been highly advised to quit smoking. Nicotine patch has been prescribed. We will continue daily cessation education. 9. DVT prophylaxis with low-dose Lovenox. Further recommendations to follow. Dictated by LONDON Quispe for Gonzales Florentin Sanford MD cc: LONDON Quispe Addendum: I personally evaluated and examined the patient in conjunction to the GATE WATCHMAN and agreed with her assessment and plans. She kept complains of pain all over including but not limiting to chest pain. MTDD
[2016-09-09 19:31] LABS: HDL 83 mg/dL (45-65); IRON SATURATION 30 %; LDL 71 mg/dL; TIBC 289 ug/dL; TOTAL IRON 87 ug/dL (49-151); TRIGLYCERIDES 130 mg/dL (35-135); UNBOUND IRON 202 ug/dL (112-346); VLDL 26 mg/dL
[2016-09-09 20:47] LABS: FREE T4 1.19 ng/dL (0.93-1.70)
[2016-09-09] MEDS: DESYREL PO SCH (20:55)
[2016-09-09] MEDS: TRANDATE PO SCH (20:56)
[2016-09-09] MEDS: PLETAL PO SCH (20:56)
[2016-09-09] MEDS: ZOFRAN IV PRN (22:23)
[2016-09-10] MEDS: PERCOCET-5 PO PRN (00:05)
[2016-09-10] MEDS: DILAUDID IV PRN ×4 (06:43→20:34)
[2016-09-10] MEDS: ZOFRAN IV PRN ×2 (06:43→19:16)
[2016-09-10 07:07] LABS: HEMOGLOBIN 12.1 g/dL (12.0-16.0); MCH 32.4 PG (27-31); MCHC 32.7 g/dL (33-37); MCV 99.2 FL (81-99); RBC 3.73 XMIL (4.2-5.4)
[2016-09-10 07:38] LABS: CALCIUM 9.5 mg/dL (8.8-10.2); POTASSIUM 4.5 mmol/L (3.5-5.1)
[2016-09-10] MEDS: ZANAFLEX PO SCH ×2 (09:07→15:08)
--- NOTE | 2016-09-10 09:25 | Diag Imaging Result Document ---
PROCEDURE NAME: US RENAL 2 (RETROPER) COMPLETE - 09/09/2016 RENAL ULTRASOUND: COMPARISON: 02/05/2016. FINDINGS: There is a 3.2 cm simple-appearing left renal cyst that is essentially stable. The kidneys are grossly normal in echotexture, otherwise. No solid renal mass or hydronephrosis is identified. The right kidney measures 8.8 cm and the left kidney measures 9.9 cm in the greatest longitudinal axes. The right renal cortex measures up to 0.9 cm and the left renal cortex measures up to 1.1 cm in thickness. The urinary bladder is grossly unremarkable. IMPRESSION: Stable left renal cyst. Essentially unremarkable renal ultrasound, otherwise.
[2016-09-10] MEDS: BUSPAR PO SCH ×3 (10:38→20:34)
--- NOTE | 2016-09-10 13:48 | PROGRESS NOTE ---
DATE: 09/10/2016 SUBJECTIVE DATA: Mrs. Reyes is a 56-year-old female admitted with chest and abdominal pain last night. She was ultimately scheduled to have a heart catheterization yesterday but came to the ER for continued chest pain and renal insufficiency. Overnight the patient reports she is still having right lower quadrant abdominal pain. She was in the ER on the 4th of this month, at which time she had an abdomen and pelvis CT which did not show anything acute. Abdomen x-ray yesterday did not show anything acute. Her enzymes have been negative since yesterday. She does continue to report occasional shortness of breath but nothing else new or acute. She is resting in bed comfortably without distress noted. No acute events noted overnight by the nursing staff. OBJECTIVE DATA: Vital Signs: Blood pressure is 120/77, heart rate 73, respiratory rate is the 19, O2 saturation 99% room air, temperature is 97.8. General: This is a disheveled appearing, 56-year-old female, lying in hospital bed, in no acute distress. Neurologic: The patient is awake, alert, and without focal deficits. HEENT: Head is atraumatic and normocephalic. Her pupils are equal, round, reactive to light. Oral mucosa is dry. Trachea is midline. There is no JVD. Chest: Diminished at the bases but overall clear to auscultation bilaterally. CV: Regular rate and rhythm. S1, S2 is noted. GI: Right lower quadrant tenderness to deep palpation. Otherwise belly is soft and nondistended. Hypoactive bowel sounds are noted. Extremities: Without edema, clubbing, or cyanosis. Pulses are palpable bilaterally. DIAGNOSTIC DATA: Renal ultrasound is negative for any acute process. She does have a stable left renal cyst. WBC is 5.14, hemoglobin 12, hematocrit 37. Sodium 141, potassium 4.5, chloride 104, CO2 23, anion gap 14, BUN 42, creatinine 1.6, glucose 95, calcium 9.5. Troponin negative. Toxicology is positive for opiates and amphetamines. ASSESSMENT AND PLAN: 1. Chest pain: Cardiology has been consulted. The patient will be having a left heart cath as soon as she is a bit more stable. Her renal function has actually improved from yesterday. We will continue with all the medications we started yesterday including aspirin and nitrates. 2. Abdominal pain: Etiology unclear. She has had negative imaging over the past few weeks. She denies any vomiting today. If she continues to have abdominal pain we may order a CT tomorrow. Belly is soft and nondistended with normoactive BS. 3. Chronic kidney disease: Creatinine and BUN have improved. Continue light IV fluid hydration and monitor. 4. Hypertension: Chronic and stable. Continue medications. 5. Hyperlipidemia: Stable. Continue high intensity statin. 6. Chronic obstructive pulmonary disease: Continue aggressive pulmonary toilet and p.r.n. nebs. 7. Nicotine dependence: Patient has been advised to quit smoking. Continue daily cessation education. 8. Congestive heart failure: Stable. Patient is euvolemic. Continue home medications. Cardiology has been consulted. 9. Deep vein thrombosis prophylaxis with Lovenox. Further recommendations to follow. Dictated by LONDON Quispe for Gonzales Florentin Sanford MD cc: LONDON Quispe Addendum: I personally evaluated and examined the patient in conjunction to the SAND TECHNICIAN and agreed with his assessments and plans. She is feeling better today. Renal function has improved. Her pain has almost resolved. MTDD
[2016-09-10] MEDS: NICODERM PATCH TD SCH (15:07)
[2016-09-10] MEDS: PLETAL PO SCH ×2 (15:18→20:34)
[2016-09-10] MEDS: LIPITOR PO SCH (15:18)
[2016-09-10] MEDS: PRILOSEC PO SCH (15:19)
[2016-09-10] MEDS: ASPIRIN PO SCH (15:19)
[2016-09-10] MEDS: ISORDIL PO SCH (15:19)
[2016-09-10] MEDS: TRANDATE PO SCH ×2 (15:20→20:34)
[2016-09-10] MEDS: PLAVIX PO SCH (15:20)
[2016-09-10] MEDS: LYRICA PO SCH (15:28)
[2016-09-10] MEDS: MUCOMYST 20% PO SCH (15:35)
--- NOTE | 2016-09-10 16:16 | CONSULTATION ---
DATE OF CONSULTATION: 09/10/2016 CHIEF COMPLAINT: Patient admitted with chest discomfort. HISTORY OF PRESENT ILLNESS: Ms. Reyes is a 56-year-old black lady with significant coronary artery disease, who was set up to undergo cardiac catheterization earlier this week. However her renal function has worsened to a creatinine of 2.4, and the plan was to us be followed by Nephrology and set her up for a left heart catheterization subsequently. However she came in yesterday with increasing complaints of chest discomfort described as squeezing in character with some radiation associated with chest pain, she had shortness of breath as well. There is no palpitations, there is no orthopnea, paroxysmal nocturnal dyspnea. She has been having recurrent episodes of chest pain in the last couple of months. REVIEW OF SYSTEMS: GI: There is no history of nausea, vomiting, diarrhea. There is no history of melena. Central nervous system: No focal weakness to suggest a CVA or TIA. Genitourinary System: There is no dysuria or hematuria. PAST MEDICAL HISTORY: 1. Unstable angina. 2. Coronary artery disease, status post PTCA stent placement to obtuse marginal artery 2008. 3. Last cardiac catheterization in 2003 left main was normal. Circumflex mid to diffuse 30-40%. LAD patent stent with 20% in-stent stenosis. RCA dominant. Ejection fraction was 35%-40%. 4. Hypertension, hyperlipidemia, AICD placement. 5. Cardiomyopathy. 6. Pulmonary artery hypertension. 7. Hyperlipidemia. 8. Tobacco abuse. 9. Renal insufficiency. 10. History of CVA. 11. Carotid disease status post right carotid endarterectomy on 01/23/2014. 12. Hypothyroidism. 13. Peripheral vascular disease. SOCIAL HISTORY: There is no history of alcohol abuse. She does not smoke. HOME MEDICATIONS: Isosorbide dinitrate 30, cilostazol, Plavix 75, aspirin 81, buspirone 10, Lyrica 225, trazodone 100, Lasix 20, Entresto / one tablet twice a day, Zofran, Mobic, omeprazole 20, Lipitor 80, Zanaflex 4, tramadol 50, labetalol 200 mg b.i.d. PHYSICAL EXAMINATION: Vital Signs: Per chart. Cardiovascular System: Normal jugular venous pressure. There is no thyromegaly, there is no carotid bruit. First and second heart sounds were heard. There is faint systolic murmur. Respiratory System: Normal air entry. There are no crepitations or rhonchi. Abdomen: Soft, nontender. There was no guarding or rigidity. Bowel sounds were heard. Central nervous system: Alert, oriented, was moving all 4 extremities. Extremities: Examination of extremities revealed no pedal edema. HEENT: Atraumatic, normocephalic. Pupils equal and reacting to light. ASSESSMENT AND PLAN: 1. Ms. Neisha Reyes is a 56-year-old black lady with history of coronary artery disease, status post stent placement to left anterior descending artery, circumflex artery in the past, who comes with complaints of recurrent episodes of angina. Patient has unstable angina. Given this, we will plan for a left heart catheterization. I have not made any changes to her medication. 2. She has severe LV dysfunction, status post AICD placement. 3. She also has had peripheral arterial disease, on multiple medications. 4. We will consult Nephrology and pretreat her with Mucomyst and IV fluids prior to her cardiac catheterization. We will check her BMP in the morning prior to the procedure. Thank you for the consult. We will follow hospital course. cc: Jonathan Whitfield MD
[2016-09-10] MEDS: SODIUM BICARBONATE 8.4% 150 MEQ in D5W 1,000 ML IV SCH (16:53)
[2016-09-10] MEDS: NS 1,000 ML IV SCH (17:26)
[2016-09-10] MEDS: LOVENOX SUBQ SCH (19:13)
--- NOTE | 2016-09-10 19:14 | CONSULTATION ---
DATE OF CONSULTATION: 09/10/2016 REASON FOR ADMISSION: Chest pain. REASON FOR CONSULT: Acute kidney injury with need for left heart catheterization. HISTORY OF PRESENT ILLNESS: Ms. Reyes is a 56-year-old female with a long history of cardiovascular disease. Patient has had an NJ in the past with cardiac stents. She has had a carotid endarterectomy, coronary artery disease, three months of chest pain. She has had an internal defibrillator placed and was actually scheduled for a left heart catheterization today at [facility]. Dr. Whitfield is her center director. Subsequently she came to [facility] Emergency Department yesterday with complaints of midsternal chest pain radiating up into her jaw and neck into the back lasting approximately 30 minutes. She was nauseated without emesis. She was short of breath. She was as well diaphoretic. She reports some lower extremity edema and some orthopnea. Subsequently upon her initial evaluation it was found that her creatinine was up to 1.8 with a baseline creatinine 1 month ago of 0.9 to 1.1. She was actually seen in the emergency department twice this past month with shortness of breath and chest pain. She had abdominal ultrasound and abdominal pelvis and CT on 08/25/2016 that was done with IV contrast. An abdominal x-ray was completed yesterday showing left-sided pacemaker, no pneumonia, lungs expanded. Renal ultrasound: Her left kidney is measuring 9.9 and the right is 8.8. She has a small simple cyst on the left, grossly unremarkable. Subsequently she is currently being hydrated. She is on Mucomyst and we will continue to follow her labs in the a.m. PAST MEDICAL HISTORY: Noted for acute NJ, systolic hypertension, coronary artery disease, congestive heart failure systolic with an EF of 20%, ischemic cardiomyopathy, history of DVTs, esophageal stricture, COPD, hyperlipidemia, osteoarthritis and questionable CKD. PAST SURGICAL HISTORY: She has had a hysterectomy, coronary artery stenting, AICD placement, right carotid endarterectomy, and she states that she has had a Green filter placed in her neck. SOCIAL HISTORY: Patient continues to smoke a pack per day. She denies any drug , alcohol or illicit drug use. She is . She lives with her spouse. FAMILY HISTORY: Both parents are with MIs, mother at 60, father age unknown. CURRENT ALLERGIES: To Phenergan. MEDICATIONS ARE: Aspirin, atorvastatin, BuSpar, cilostazol, clopidogrel, Lasix , [place], isosorbide, labetalol, Mobic, omeprazole, Zofran, oxycodone, KCl, Lyrica, Entresto, tizanidine and trazodone. REVIEW OF SYSTEMS: Times 10 with pertinent positives listed above in the HPI. MOST RECENT VITAL SIGNS: Temperature 97.8 degrees, blood pressure 140/79, heart rate 71, respirations 19. She is on room air. Last recorded saturation 94%. She has had 240 in. She has had 300 out. We will make sure that they are keeping strict I's and O's. LABS: This a.m., sodium 141, potassium 4.5, chloride 104, CO2 23, BUN 42, creatinine 1.6. Glucose 95. Her anion gap is 14. Calcium is 9.5. Previous albumin of 4.5. Troponin is negative. CPK is negative. TSH 1.01, free T4 1.19. White count 5.14, hemoglobin 12.1, hematocrit 37 with a platelet count of 263,000. Patient's D-dimer on admission was less than 0.10. Urinalysis is trace proteinuria, negative hematuria, negative for bacteria or leukocytes. Urine drug screen was positive for opiate, positive for amphetamines. PHYSICAL EXAMINATION: General: This is a 56-year-old female. She is currently resting in bed. She is in no acute distress. Skin: Warm and dry. HEENT: Normocephalic, atraumatic. Conjunctiva is pink. She has NORRIS. Mucous membranes moist. Neck : Supple. Trachea midline. No JVD. Cardiovascular: Regular rate and rhythm. She has a soft systolic murmur. No gallop appreciated. Lungs: Clear to auscultation anteriorly. Equal excursion. She remains on O2. Abdomen: Round, soft, nontender. Positive bowel sounds. Genitourinary: Not inspected. Patient is voiding. We will continue to monitor I's and O's. Extremities: She has no edema. No clubbing or cyanosis. Neurological: Alert and oriented x3. ASSESSMENT AND PLAN: 1. Acute kidney injury. Patient has a baseline creatinine of 0.9 to 1.1 approximately 2 months ago. Her creatinine has slowly responded and it is now down to 1.6. She has adequate urine out. We will check urine electrolytes. Her renal ultrasound is negative. No indications for intervention at this time. We will continue to hydrate her while she is NPO overnight. 2. Chest pain. Patient is scheduled for a left heart catheterization in the a.m. Mucomyst has been ordered. Again we will hydrate during the night. 3. Heart failure with known ejection fraction of 20%. Patient is basically euvolemic. Again gentle hydration during the night to assist with her fluid volume and her renal status. 4. Electrolytes and acid-base balance. These are stable. 5. Anemia. This remains low but stable. I would to thank you for allowing us to follow with this patient. Data reviewed, discussed with Damien Alvarenga on 09/10/16. I agree with the above assessment and plan of care. rg Dictated by LONDON Forman for Naif Beltrán MD cc: LONDON Forman MD [facility]
[2016-09-10 20:31] LABS: UR PROT RANDOM 15.3 mg/dL
[2016-09-10] MEDS: DESYREL PO SCH (20:34)
[2016-09-11] MEDS: ZANAFLEX PO SCH ×4 (00:56→20:42)
[2016-09-11] MEDS: DILAUDID IV PRN ×6 (00:56→22:44)
[2016-09-11] MEDS: PRILOSEC PO SCH (06:11)
[2016-09-11] MEDS: MUCOMYST 20% PO SCH ×3 (06:38→20:41)
--- NOTE | 2016-09-11 07:08 | EKG Report ---
Test Performed on : 09/11/2016 06:11:56 AM Test Reason : chest pain Blood Pressure : / mmHG Vent. Rate : 066 BPM Atrial Rate : 066 BPM P-R Int : 180 ms QRS Dur : 110 ms QT Int : 456 ms P-R-T Axes : 040 -11 093 degrees QTc Int : 478 ms Normal sinus rhythm. Moderate voltage criteria for LVH, may be normal variant Inferior infarct (cited on or before 02-SEP-2016) Abnormal ECG When compared with ECG of 09-SEP-2016 09:10, (Unconfirmed) premature atrial complexes. are no longer present Confirmed by Jen WEEKS, Aaron Trivedi ([id number]) on 09/12/2016 2:20:06 PM
[2016-09-11 07:17] LABS: HEMATOCRIT 31.8 % (37.0-47.0); HEMOGLOBIN 10.3 g/dL (12.0-16.0); MCH 32.6 PG (27-31); MCHC 32.4 g/dL (33-37); MCV 100.6 FL (81-99); MPV 9.7 FL (7.4-10.4); RBC 3.16 XMIL (4.2-5.4)
[2016-09-11 07:29] LABS: INR 1.02; PROTIME 10.7 Seconds (9.2-11.7)
[2016-09-11 07:39] LABS: CALCIUM 9.2 mg/dL (8.8-10.2); POTASSIUM 3.9 mmol/L (3.5-5.1)
[2016-09-11] MEDS: BUSPAR PO SCH ×3 (09:14→20:42)
[2016-09-11] MEDS ORDERED: HEPARIN 1000 UNITS/NS 2,000 UNIT/1,000 ML IV.SOLN ONE (09:50)
[2016-09-11] MEDS ORDERED: CLAVE PUMP SET NO FILTER 12260 ONE (10:04)
[2016-09-11] MEDS ORDERED: NS 1,000 ML ONE (10:04)
[2016-09-11] MEDS ORDERED: CLAVE TWINSITE 32 IN 11959 ONE (10:05)
[2016-09-11] MEDS ORDERED: VERSED ONE (10:14)
[2016-09-11] MEDS ORDERED: DILAUDID ONE (10:14)
--- NOTE | 2016-09-11 11:53 | CARDIAC CATH REPORT ---
PROCEDURE NAME: - INDICATION: Unstable angina. PROCEDURES PERFORMED: 1. Left heart catheterization. 2. Selective coronary angiography. PROCEDURE IN DETAIL: Ms. Reyes was brought to the catheterization laboratory in fasting state. Informed consent was obtained. Prepped in usual fashion. She was anesthetized over the right radial artery after Yung's test was proved adequate. A 5-Pashto sheath was placed via true Seldinger technique. Radial cocktail was administered. Catheters were introduced. Hemodynamic measurements were made in the ascending thoracic aorta. Coronary angiography was performed in multiple views using JL3.5 and JR4 diagnostic catheters. Left heart catheterization was performed using the JR4. At conclusion of the procedure, TR band was left inflated at 10 mL of air with good care and capillary refill. Good hemostasis. No apparent complications. Then, 100 mL of Visipaque was used with 5-10 mL of blood loss. No apparent complications. FINDINGS: 1. The left main very short. Appears relatively normal. 2. Left anterior descending has essentially mild luminal irregularities scattered throughout the entirety of the vessel. Minimal luminal irregularities noted throughout a cascade of diagonals. This does not appear to be any different than study in September 2013. 3. Circumflex originates from the left main. Mild diffuse disease is noted throughout the proximal vessel with luminal irregularities up to around 30% to 40%. There is a very high small OM with minimal luminal irregularities and the remainders of the OMs also have mild luminal irregularities. This does not appear to be any different than the study in September 2013. 4. Right coronary artery was very difficult to engage. It came off high off the aorta. It had an usual takeoff as well. We were not able to fully engage the vessel from the right radial but seemed to get reasonable shots. There was noted to be 30% to 40% calcified ectatic disease throughout the vessel. There was a PDA coming off of the right. 5. Aortic blood pressure is 148/78. 6. Left ventricle pressure 144/17 with an LVEDP of 25. ASSESSMENT: Ms. Reyes is a 56-year-old, black female with a history of coronary disease and reduced ejection fraction. She presented to Dr. Whitfield's office with unstable angina. PLAN: At this point, she does not appear to have any obvious flow-limiting lesions as the etiology of her symptoms. I would recommend continued aggressive medical management in this patient for secondary risk factor modification. Her EDP is elevated which may be artificially so secondary to her recent hydration in the hospital but some of her symptoms may be diastolic in nature. cc: Amrit Lopez MD
[2016-09-11] MEDS: PLAVIX PO SCH (12:17)
[2016-09-11] MEDS: ISORDIL PO SCH (12:17)
[2016-09-11] MEDS: LIPITOR PO SCH (12:17)
[2016-09-11] MEDS: ASPIRIN PO SCH (12:17)
[2016-09-11] MEDS: LYRICA PO SCH (12:17)
[2016-09-11] MEDS: PLETAL PO SCH ×2 (12:18→20:42)
[2016-09-11] MEDS: NICODERM PATCH TD SCH (12:18)
[2016-09-11] MEDS: SODIUM BICARBONATE 8.4% 150 MEQ in D5W 1,000 ML IV SCH (12:18)
--- NOTE | 2016-09-11 12:25 | PROGRESS NOTE ---
DATE: 09/11/2016 SUBJECTIVE: The patient is feeling better today. She is waiting to go down for the cardiac catheterizations. Complained of having mild chest discomfort. OBJECTIVE: Vital signs: Blood pressure 128/93, pulse of 87, respiration 18, temperature 98.1 degrees, saturation of 99% on 2L nasal cannula. General Appearance: Well-developed, well- nourished, black female in no acute distress. HEENT: Anicteric. Clear conjunctivae. Neck: Supple. No JVD. No bruit. Cardiovascular: S1 and S2. Normal rate and rhythm. No murmur, rubs, or gallops. Pulmonary: Clear to auscultation bilaterally. Gastrointestinal: Soft, nontender, nondistended. Normoactive bowel sounds. Musculoskeletal: No clubbing, cyanosis, or edema. LABORATORY: Sodium 139, potassium 3.9, chloride 101, bicarbonate 28, BUN 28, creatinine 1.3, glucose 98. Hematology: White count 4.92, hemoglobin 10.3, hematocrit 31.9, platelets of 237,000. ASSESSMENT AND PLAN: A 56-year-old black female admitted to the hospital for acute renal failure. 1. Acute renal failure is improving with intravenous fluid, consistent with acute tubular necrosis. 2. Chest pain. Cardiology has been following, trying to get cardiac catheterization, but the creatinines were high earlier in the week. They are planning to catheterize the patient today. We will continue to monitor her renal function for another day before discharging her. 3. Abdominal pain of unclear the etiology has been improving. If it continues to persist, we will get a CAT scan of the abdomen. 4. Deep vein thrombosis prophylaxis. The patient on Lovenox. 5. Hypertension. Continue Trandate 200 mg twice a day. 6. Tobacco abuse. Education provided. 7. Depression. Continue buspirone. 8. Coronary artery disease. The patient was on Plavix and Lipitor. We will continue Plavix, Lipitor, and aspirin for now.
[2016-09-11] MEDS: TRANDATE PO SCH ×2 (14:43→20:42)
[2016-09-11] MEDS: NS 1,000 ML IV SCH (16:11)
[2016-09-11] MEDS ORDERED: LOVENOX SUBQ SCH ×2 (18:00→18:12)
[2016-09-11] MEDS: DESYREL PO SCH (20:42)
[2016-09-11] MEDS: ZOFRAN IV PRN (20:52)
[2016-09-12] MEDS: NS 1,000 ML IV SCH ×2 (02:47→12:39)
[2016-09-12] MEDS: DILAUDID IV PRN ×4 (02:49→14:19)
[2016-09-12] MEDS: PRILOSEC PO SCH (06:19)
[2016-09-12 07:36] LABS: HEMATOCRIT 28.6 % (37.0-47.0); HEMOGLOBIN 9.2 g/dL (12.0-16.0); MCH 32.3 PG (27-31); MCHC 32.2 g/dL (33-37); MCV 100.4 FL (81-99); MPV 9.6 FL (7.4-10.4); RBC 2.85 XMIL (4.2-5.4)
[2016-09-12 07:52] LABS: AGAP 10; BUN 16 mg/dL (8-22); CALCIUM 8.5 mg/dL (8.8-10.2); CHLORIDE 107 mmol/L (98-107); COSMO 289; POTASSIUM 3.5 mmol/L (3.5-5.1); SODIUM 145 mmol/L (136-145); TCO2 28 mmol/L (25-35)
[2016-09-12] MEDS: LIPITOR PO SCH (08:26)
[2016-09-12] MEDS: LYRICA PO SCH (08:27)
[2016-09-12] MEDS: PLETAL PO SCH (08:27)
[2016-09-12] MEDS: TRANDATE PO SCH (08:27)
[2016-09-12] MEDS: ZANAFLEX PO SCH ×3 (08:27→17:25)
[2016-09-12] MEDS: ISORDIL PO SCH (08:27)
[2016-09-12] MEDS: NICODERM PATCH TD SCH (08:27)
[2016-09-12] MEDS: BUSPAR PO SCH ×3 (08:28→17:25)
[2016-09-12] MEDS: PLAVIX PO SCH (08:28)
[2016-09-12] MEDS: ASPIRIN PO SCH (08:28)
[2016-09-12] MEDS ORDERED: BENADRYL IV ONE (13:52)
[2016-09-12] MEDS ORDERED: SOLU-MEDROL IV ONE (13:52)
[2016-09-12] MEDS ORDERED: ZANTAC IV ONE (14:30)
[2016-09-12] MEDS ORDERED: 1/2 NS IV ONE (14:30)
[2016-09-12 15:44] VITALS: BP 148/95
[2016-09-12] MEDS: PERCOCET-5 PO PRN (17:37)
--- NOTE | 2016-09-13 21:44 | DISCHARGE SUMMARY ---
ADMISSION DATE: 09/09/2016 DISCHARGE DATE: 09/12/2016 DISCHARGE DIAGNOSES: 1. Acute renal failure, resolved. 2. History of systolic heart failure. 3. Mild angioedema. 4. Hyperlipidemia. 5. Hypertension. 6. Tobacco abuse. 7. GERD. 8. Peripheral neuropathy. 9. Chronic pain. 10. Insomnia. DISCHARGE MEDICATIONS: 1. Omeprazole 20 mg p.o. daily. 2. Aspirin 81 mg p.o. daily. 3. Trazodone 100 mg p.o. at bedtime. 4. Plavix 75 mg p.o. daily. 5. Lipitor 80 mg p.o. daily. 6. Tizanidine 4 mg t.i.d. 7. Pletal 100 mg be p.o. b.i.d. 8. Endocet 7.5 q.6 p.r.n. for pain. 9. Trandate 200 mg b.i.d. 10. Isosorbide 30 mg p.o. daily. 11. Hydralazine 25 mg p.o. t.i.d. 12. [place] 5 p.r.n. 13. Lyrica 225 daily. 14. KCl 20 mEq daily. 15. Lasix 20 mg daily. 16. The patient will finish up her Zithromax. 17. Zofran p.r.n. for nausea. 18. Meloxicam 7.5 mg p.o. daily. 19. BuSpar 10 mg p.o. daily. CONSULTATION: Cardiology was consulted. Dr. Whitfield saw the patient and sent her up for the cardiac catheterization. Dr. Amrit Lopez did the cardiac catheterization, and did not require any intervention. Her left ventricular and diastolic pressures were 25. He did not find any obvious flow-limiting lesion that needs to be intervened or explained her symptoms. He recommended aggressive medical management. HOSPITAL COURSE: The patient is a 56-year-old black female, who saw the reset merchandiser in the office for the cardiac catheterization, but was found to have an elevated creatinine of about 1.8. The patient was sent over to the hospital for acute renal failure. We admitted the patient, and we started rehydrating the patient with IV fluids, and Cardiology added bicarb. Her kidney function has improved. Her acute renal failure has resolved. The patient was taken to catheterization lab and did a cardiac catheterization, and the report that is stated above no intervention needed. The patient does have lesion, but not anything that needs to be intervened. Dr. Amrit Lopez recommended medical management. We will put the patient back on her home on her , with her ARB on it. The patient is still having lip swelling and tongue swelling. I am concerned that the patient may have an MARCIA inhibitor allergy. So, I stopped her and started her on hydralazine. The patient is already on a nitrate. She is otherwise doing well. She has no complaint. For her angioedema, I did give the patient a dose of 125 mg of Solu-Medrol, 50 of Benadryl and 50 of a Zantac IV. PLAN: We will discharge the patient home when her symptoms improve later today. PHYSICAL EXAMINATION: Vital Signs: At discharge, her vital signs are blood pressure 121/73, pulse of 77, respirations 21, temperature 98.2, sat of 98% in room air. General appearance: Well- developed, well-nourished black female, in no acute distress. HEENT: Anicteric. Clear conjunctivae. Neck: Supple. No JVD. No bruit. Cardiovascular: S1, S2. Normal rate and rhythm. No murmur, rubs, or gallops. Pulmonary: Clear to auscultation bilaterally. GI: Soft, nontender, nondistended. Normoactive bowel sounds. Musculoskeletal: No clubbing, cyanosis, or edema. PLAN: We will discharge the patient home. CONDITION: Stable and improving. ACTIVITY: As tolerated. DIET: Cardiac prudent diet, and advised the patient to quit smoking. TIME SPENT: Total time discharging this patient is 35 minutes. cc: Jonathan Whitfield MD
== END 2016-09-12 18:25 | disposition home or self-care (01) ==
LOC: ED 08:50 → EDIPHOLD 16:43 → 3N 20:46 → 3S 09-11 11:36
PROVIDERS: ATTEND Internal Medicine

== ENCOUNTER 2017-02-09 16:40 | Inpatient (IN) ==
[2017-02-09] MEDS ORDERED: ASPIRIN PO STA (16:42)
--- NOTE | 2017-02-09 16:55 | EKG Report ---
Test Performed on : 02/09/2017 4:53:50 PM Test Reason : CP Blood Pressure : / mmHG Vent. Rate : 075 BPM Atrial Rate : 075 BPM P-R Int : 176 ms QRS Dur : 112 ms QT Int : 414 ms P-R-T Axes : 045 -10 099 degrees QTc Int : 462 ms Sinus rhythm. with premature atrial complexes. with aberrant conduction. Right atrial enlargement Voltage criteria for left ventricular hypertrophy Cannot rule out Septal infarct , age undetermined Possible Inferior infarct (cited on or before 02-SEP-2016) Abnormal ECG When compared with ECG of 18-NOV-2016 11:52, Minimal criteria for Septal infarct are now present Borderline criteria for Lateral infarct are no longer present Nonspecific T wave abnormality now evident in Inferior leads Nonspecific T wave abnormality no longer evident in Anterior leads Unconfirmed Result
[2017-02-09] MEDS ORDERED: MORPHINE IV ONE (17:19)
[2017-02-09] MEDS ORDERED: ZOFRAN IV ONE (17:19)
--- NOTE | 2017-02-09 17:44 | Diag Imaging Result Doc PS360 ---
EXAM: CHEST-2 VIEWS HISTORY: CP TECHNIQUE: Two views COMPARISON: 09/14/2016 FINDINGS: The lungs are well expanded. The heart is mildly enlarged. There is a left-sided pacemaker. The vessels are not distended. There are no infiltrates. No pleural effusions. IMPRESSION: Mild cardiomegaly. Electronically signed by Jose Sandoval 02/09/2017 5:42 PM
[2017-02-09 18:47] LABS: MANUAL DIFF NEEDED? NO
[2017-02-09 18:49] LABS: BASO% 0.8 % (0.0-0.8); EOS# 0.19 X1000 (0.0-0.7); EOS% 3.6 % (0.0-10.0); HEMATOCRIT 35.2 % (37.0-47.0); HEMOGLOBIN 11.4 g/dL (12.0-16.0); IMM GRAN# 0.01 X1000 (0.0-0.04); IMM GRAN% 0.2 % (0.0-0.5); LYMPH# 1.57 X1000 (1.2-3.4); LYMPH% 29.8 % (20.5-51.1); MCH 32.4 PG (27-31); MCHC 32.4 g/dL (33-37); MONO# 0.63 X1000 (0.11-0.59); MPV 10.1 FL (7.4-10.4); NEUT% 53.6 % (42.2-75.2); PLT 250 X1000 (130-400); RBC 3.52 XMIL (4.2-5.4)
[2017-02-09 18:57] LABS: URINE CULTURE PL NEEDED? NO
[2017-02-09 19:06] LABS: BILIRUBIN URINE NEGATIVE (NEGATIVE); BLOOD URINE NEGATIVE (NEGATIVE); CLARITY CLEAR (CLEAR); COLOR YELLOW; GLUCOSE URINE NEGATIVE (NEGATIVE); LEUKOCYTES URINE NEGATIVE (NEGATIVE); NITRITE URINE NEGATIVE (NEGATIVE); PROTEIN URINE NEGATIVE (NEGATIVE); UROBILINOGEN URINE NORMAL
[2017-02-09 19:07] LABS: INR 0.92 (0.86-1.15); PROTIME 13.1 Seconds (12.1-15.5)
[2017-02-09 19:08] LABS: PTT PL 36.5 Seconds (22.6-43.9)
[2017-02-09 19:27] LABS: ALBUMIN 4.3 g/dL (3.5-5.0); CALCIUM 9.4 mg/dL (8.8-10.2); MAGNESIUM 1.8 mg/dL (1.5-2.7); POTASSIUM 4.1 mmol/L (3.5-5.1); TOTAL BILIRUBIN 0.5 mg/dL (0.20-1.00); TOTAL PROTEIN 7.6 g/dL (6.3-8.3)
[2017-02-09 19:28] LABS: URINE CAST NONE SEEN /LPF; URINE CRYSTAL NONE SEEN /HPF; URINE EPITHELIAL CELLS <10 /HPF (<10); URINE RBC <10 /HPF (<10); URINE SOURCE CLEAN CATCH; URINE WBC <10 /HPF (<10)
--- NOTE | 2017-02-09 21:10 | EKG Report ---
Test Performed on : 02/09/2017 9:07:00 PM Test Reason : chest pain Blood Pressure : / mmHG Vent. Rate : 074 BPM Atrial Rate : 074 BPM P-R Int : 168 ms QRS Dur : 104 ms QT Int : 416 ms P-R-T Axes : 044 -07 117 degrees QTc Int : 461 ms Normal sinus rhythm. Possible Left atrial enlargement Left ventricular hypertrophy Possible Inferior infarct (cited on or before 02-SEP-2016) Abnormal ECG When compared with ECG of 09-FEB-2017 16:53, (Unconfirmed) aberrant conduction. is no longer present Minimal criteria for Septal infarct are no longer present Unconfirmed Result
[2017-02-09] MEDS ORDERED: NORCO-7.5 PO ONE (21:21)
[2017-02-09] MEDS ORDERED: NITROGLYCERIN SL ONE (22:20)
[2017-02-09] MEDS ORDERED: LOVENOX 1 MG/KG SUBQ ONE (22:41)
[2017-02-09] MEDS ORDERED: LOVENOX ONE (22:44)
[2017-02-09] MEDS ORDERED: ZOFRAN IV PRN (23:47)
[2017-02-09] MEDS ORDERED: NITROGLYCERIN TOP ONE (23:47)
[2017-02-09] MEDS ORDERED: NS 1,000 ML IV ONE (23:47)
[2017-02-09] MEDS ORDERED: TYLENOL PO PRN (23:47)
--- NOTE | 2017-02-09 23:47 | PROVIDER DOCUMENTATION ---
This chart was entered by Suzette Rosenthal Scribe, acting as scribe for Stephen Cosme MD. HPI-Chest Pain - General Chief Complaint: Chest Pain Stated Complaint: cp Time Seen by Provider: 02/09/17 17:07 Source: patient Allergies/Adverse Reactions: Patient Allergies Allergy/AdvReac Type Severity Reaction Status Date / Time promethazine HCl * Allergy JERKING Verified 12/09/16 11:38 [From Phenergan] Home Medications: Home Medication List Medication Instructions Recorded Confirmed Last Taken Type Aspirin [Ecotrin] 81 mg PO DAILY 01/18/14 01/07/17 01/07/17 07:00 History Potassium Chloride 20 meq PO DAILY 01/01/16 01/07/17 01/07/17 07:00 History Buspirone HCl 10 mg PO TID 09/09/16 01/07/17 01/07/17 12:00 History Cilostazol 100 mg PO BID 09/09/16 01/07/17 01/07/17 07:00 History Clopidogrel Bisulfate [Clopidogrel] 75 mg PO DAILY 09/09/16 01/07/17 01/07/17 07 :00 History Furosemide 40 mg PO DAILY 09/09/16 01/07/17 01/07/17 07:00 History Isosorbide Dinitrate 30 mg PO DAILY 09/09/16 01/07/17 01/07/17 07:00 History Labetalol [Trandate] 200 mg PO BID 09/09/16 01/07/17 01/07/17 07:00 History Meloxicam 7.5 mg PO DAILY 09/09/16 01/07/17 01/07/17 07:00 History Ondansetron HCl [Zofran] 4 mg PO Q8H PRN PRN 09/09/16 01/07/17 01/07/17 07:00 History Pregabalin [Lyrica] 300 mg PO DAILY 09/09/16 01/07/17 01/07/17 07:00 History Trazodone HCl 100 mg PO QHS 09/09/16 01/07/17 01/06/17 19:00 History Hydralazine [Apresoline] 25 mg PO TID #90 tablet 09/12/16 01/07/17 01/07/17 12: 00 Rx Atorvastatin Calcium [Lipitor] 80 mg PO DAILY #30 tablet 09/14/16 01/07/1701/07 07:00 Rx Omeprazole [Prilosec] 20 mg PO DAILY #30 capsule 09/14/16 01/07/17 01/07/17 07: 00 Rx Tizanidine [Zanaflex] 4 mg PO Q8HR #90 tablet 09/14/16 01/07/17 01/07/17 07:00 Rx Polyethylene Glycol 3350 [Miralax] 17 gm PO BID #360 powd.pack 11/18/1601/07/17 07:00 Rx Albuterol [Albuterol Neb] 2.5 mg INH RTQ4H 12/02/16 01/07/17 01/07/17 07:00 History Iron,Carbonyl [Iron] 45 mg PO DAILY 12/02/16 01/07/17 01/07/17 07:00 History Sacubitril/Valsartan [Entresto 24 1 each PO BID 12/02/16 01/07/17 01/07/17 07: 00 History mg-26 mg Tablet] Hydrocodone/Acetaminophen [[place] 1 each PO BID #14 tablet 12/09/16 01/07/17 07:00 Rx 5-325 Tablet] Lidocaine 5% Patch [Lidoderm] 1 each TOP DAILY #30 patch 01/07/17 Unknown Rx - History of Present Illness-CP Nature of Presenting Problem: PT is a 56 y/o F that presents to ED with cc of chest pain since noon today. The PT also presents with SOB, lightheadedness and nausea. 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 PT c/o harshad shoulder pain, rt leg pain and generalized back pain. Location: reports: central Chest Pain Radiation: reports: shoulders, back. denies: arms, neck Quality of Pain: reports: aching, sharp Severity in ED: severe Onset/Duration: abrupt, 4-6 hours ago Timing: still present Context/Activities at Onset: reports: light activity Modifying Factors: improves with: nothing Associated Symptoms: reports: back pain, nausea, shortness of breath. denies: abdominal pain, diaphoresis, dizziness, edema, fever/chills, headache, vomiting Nitro Today/Relief: no nitro taken today Aspirin Treatment Today: no aspirin today Similar Symptoms Previously?: No Recently Seen Here or By Another Healthcare Provider: No Review of Systems - Adult - REVIEW OF SYSTEMS - ADULT Constitutional: reports: no symptoms reported Eyes: reports: no symptoms reported Ears, Nose, Mouth & Throat: reports: no symptoms reported Cardiovascular: reports: chest pain Respiratory: reports: shortness of breath. denies: cough Gastrointestinal: reports: nausea. denies: abdominal pain, diarrhea, vomiting Genitourinary: reports: no symptoms reported Musculoskeletal: reports: back pain, other (harshad shoulder pain, rt leg pain) Integumentary: reports: no symptoms reported Neurological: reports: other (lightheaded, pt states she drags her left foot due to a stroke in the past). denies: dizziness/vertigo, headache/migraines Psychiatric: reports: no symptoms reported Endocrine: reports: no symptoms reported Hematologic/Lymphatic: reports: no symptoms reported Allergic/Immunologic: reports: no symptoms reported All Other Systems: Reviewed and Negative Past History - Adult - PAST MEDICAL HISTORY-ADULT Review of Records: reports: Old Records Reviewed, Nursing Assessment Review, Medications Reviewed Major Childhood Illnesses: reports: denies history Cardiovascular: reports: CAD, CHF, HTN, hyperlipidemia, [place] (x3), pacemaker, other Respiratory: reports: denies history Gastrointestinal: reports: GERD Obstetrical/Gynecological: reports: denies history Genitourinary: reports: denies history Musculoskeletal: reports: other Neurological: reports: CVA Endocrine/Immune: reports: thyroid disorder Other Conditions: reports: denies history - PRIOR SURGERIES/PROCEDURES Surgical/Procedure History: reports: cardiac stent, hysterectomy, other - PRIOR HOSPITALIZATIONS Prior Hospitalizations: reports: none - IMMUNIZATION STATUS Childhood Immunizations: UTD, See Nurse Assessment Flu Vaccine: See Nurse Assessment - FAMILY HISTORY Family History: reviewed, not pertinent Physical Exam-General - PHYSICAL EXAM-ADULT Initial Vital Signs Reviewed: Yes - CONSTITUTIONAL General Appearance: alert, mild distress (pt begging for pain meds) - EYES Eyes: PERRL/EOMI, pink conjunctivae - HEAD, EARS, NOSE, MOUTH & THROAT HENMT: normocephalic/atraumatic, moist mucous membranes - NECK Neck: non-tender, full range of motion, supple - RESPIRATORY Respiratory: chest non-tender, lungs clear, normal breath sounds - CARDIOVASCULAR Cardiovascular: regular rate, rhythm, no edema, other (abnormal peripheral pulses) - GASTROINTESTINAL (ABDOMEN) Abdominal Exam: normal bowel sounds, non tender, soft - LYMPHATIC Lymphatic: no adenopathy - MUSCULOSKELETAL Back Exam: no CVA tenderness, other (tenderness to multiple locations on back) Extremity: normal range of motion, non-tender - SKIN Integumentary: normal color, normal turgor, warm/dry - NEUROLOGIC Neurologic: brand ambassador promotional model II-XII nml as tested, grossly normal - PSYCHIATRIC Psych/Mental Status: normal mood/affect, normal thought content, oriented x 3 Progress - PLAN OF CARE/RESULTS Progress/Plan/Lab Results: Vital Signs - 8 hr 02/09/17 16:44 02/09/17 18:46 02/09/17 19:19 Temperature 97.9 F Pulse Rate 84 72 70 Respiratory Rate 18 17 14 Blood Pressure 098/059 110/65 115/73 O2 Sat by Pulse Oximetry 99 96 94 L 02/09/17 20:35 02/09/17 21:34 02/09/17 22:20 Temperature Pulse Rate 69 81 77 Respiratory Rate 18 20 16 Blood Pressure 116/80 108/76 111/76 O2 Sat by Pulse Oximetry 95 95 95 Laboratory Results - last 24 hr 02/09/17 02/09/17 02/09/17 17:36 18:20 18:40 WBC RBC Hgb Hct MCV MCH MCHC RDW Std Deviation Plt Count MPV Immature Gran % (Auto) Neut % (Auto) Lymph % (Auto) Smith % (Auto) Eos % (Auto) Baso % (Auto) Immature Gran # (Auto) Neut # (Auto) Lymph # (Auto) Smith # (Auto) Eos # (Auto) Baso # (Auto) PT INR APTT (Factor Assay) Sodium 143 Potassium 4.1 Chloride 102 Carbon Dioxide 24 L Anion Gap 17 BUN 23 H Creatinine 1.8 H Estimated GFR/1.73 m2 29 BUN/Creatinine Ratio 13 Glucose 83 Calculated Osmolality 288 Calcium 9.4 Magnesium 1.8 Total Bilirubin 0.50 AST 20 ALT 20 Alkaline Phosphatase 109 H Creatine Kinase Troponin T [id number]-[id number] Pept Total Protein 7.6 Albumin 4.3 Globulin 3.0 Albumin/Globulin Ratio 1.0 Lipase 49 Urine Source CLEAN CATCH Urine Color YELLOW Urine Clarity CLEAR Urine pH 5.0 Ur Specific [place] 1.010 Urine Protein NEGATIVE Urine Ketones NEGATIVE Urine Blood NEGATIVE Urine Nitrite NEGATIVE Urine Bilirubin NEGATIVE Urine Urobilinogen NORMAL Urine Microscopic RBC <10 Urine WBC NEGATIVE Urine Microscopic WBC <10 Ur Epithelial Cells <10 Urine Crystals NONE SEEN Urine Bacteria NEGATIVE Urine Casts NONE SEEN Urine Yeast NONE SEEN Urine Glucose NEGATIVE 02/09/17 02/09/17 02/09/17 18:40 18:40 18:40 WBC 5.26 RBC 3.52 L Hgb 11.4 L Hct 35.2 L MCV 100.0 H MCH 32.4 H MCHC 32.4 L RDW Std Deviation 13.7 Plt Count 250 MPV 10.1 Immature Gran % (Auto) 0.2 Neut % (Auto) 53.6 Lymph % (Auto) 29.8 Smith % (Auto) 12.0 H Eos % (Auto) 3.6 Baso % (Auto) 0.8 Immature Gran # (Auto) 0.01 Neut # (Auto) 2.82 Lymph # (Auto) 1.57 Smith # (Auto) 0.63 H Eos # (Auto) 0.19 Baso # (Auto) 0.04 PT INR APTT (Factor Assay) Sodium Potassium Chloride Carbon Dioxide Anion Gap BUN Creatinine Estimated GFR/1.73 m2 BUN/Creatinine Ratio Glucose Calculated Osmolality Calcium Magnesium Total Bilirubin AST ALT Alkaline Phosphatase Creatine Kinase Troponin T < 0.010 [id number]-[id number] Pept 527 H Total Protein Albumin Globulin Albumin/Globulin Ratio Lipase Urine Source Urine Color Urine Clarity Urine pH Ur Specific [place] Urine Protein Urine Ketones Urine Blood Urine Nitrite Urine Bilirubin Urine Urobilinogen Urine Microscopic RBC Urine WBC Urine Microscopic WBC Ur Epithelial Cells Urine Crystals Urine Bacteria Urine Casts Urine Yeast Urine Glucose 02/09/17 02/09/17 02/09/17 18:40 21:05 21:05 WBC RBC Hgb Hct MCV MCH MCHC RDW Std Deviation Plt Count MPV Immature Gran % (Auto) Neut % (Auto) Lymph % (Auto) Smith % (Auto) Eos % (Auto) Baso % (Auto) Immature Gran # (Auto) Neut # (Auto) Lymph # (Auto) Smith # (Auto) Eos # (Auto) Baso # (Auto) PT 13.1 INR 0.92 APTT (Factor Assay) 36.5 Sodium Potassium Chloride Carbon Dioxide Anion Gap BUN Creatinine Estimated GFR/1.73 m2 BUN/Creatinine Ratio Glucose Calculated Osmolality Calcium Magnesium Total Bilirubin AST ALT Alkaline Phosphatase Creatine Kinase 123 Troponin T < 0.010 [id number]-Yenlanmuiuf Pept Total Protein Albumin Globulin Albumin/Globulin Ratio Lipase Urine Source Urine Color Urine Clarity Urine pH Ur Specific [place] Urine Protein Urine Ketones Urine Blood Urine Nitrite Urine Bilirubin Urine Urobilinogen Urine Microscopic RBC Urine WBC Urine Microscopic WBC Ur Epithelial Cells Urine Crystals Urine Bacteria Urine Casts Urine Yeast Urine Glucose Orders Category Date Time Status Cardiac Monitoring DIRECTED Care 02/09/17 16:42 Active Oxygen Therapy- ED Nursing DIRECTED Care 02/09/17 16:42 Active Saline Loc NOW Care 02/09/17 16:42 Active CHEST-2 VIEWS [RAD] Stat Exams 02/09/17 16:42 Completed CBC WITH ELECTRONIC DIFF [HEME] Stat Lab 02/09/17 18:40 Completed CK PROFILE [SP CHEM] Stat Lab 02/09/17 21:05 Completed COMPREHENSIVE METABOLIC PANEL [CHEM] Stat Lab 02/09/17 18:40 Completed LIPASE [CHEM] Stat Lab 02/09/17 18:20 Completed MAGNESIUM [CHEM] Stat Lab 02/09/17 18:40 Completed PRO B-NATRIURETIC PEPTIDE Stat Lab 02/09/17 18:40 Completed PROTIME WITH INR PL [COAG] Stat Lab 02/09/17 18:[address] [COAG] Stat Lab 02/09/17 18:40 Completed TROPONIN T Stat Lab 02/09/17 18:40 Completed TROPONIN T Stat Lab 02/09/17 21:[address] W/POSS RFLX CULT [URINALYSIS] Stat Lab 02/09/17 17:36 Completed Aspirin Med 02/09/17 16:42 Discontinued 325 mg PO STAT STA Enoxaparin 1 mg/kg [Lovenox 1 mg/kg] Med 02/09/17 22:41 Discontinued 1 each SUBQ NOW ONE Enoxaparin [Lovenox] Med 02/09/17 22:44 Discontinued 80 mg .ROUTE .STK-MED ONE Hydrocodone/APAP 7.5 mg/325 mg [[place]-7.5] Med 02/09/17 21:21 Discontinued 1 each PO NOW ONE Morphine Med 02/09/17 17:19 Discontinued 4 mg IV NOW ONE Nitroglycerin Sl [Nitroglycerin] Med 02/09/17 22:20 Discontinued 0.4 mg SL NOW ONE Ondansetron [Zofran] Med 02/09/17 17:19 Discontinued 4 mg IV NOW ONE EKG [EKG] Stat Ther 02/09/17 16:42 Draft EKG [EKG] Stat Ther 02/09/17 20:54 Draft Result Diagrams: 02/09/17 18:40 02/09/17 18:40 - REASSESSMENT Reassessment #1 Time Reassessed: 23:44 (DISCUSSES WITH DR SIEGEL AND DR STANLEY ABOUT ADMISSION) Reassessment Comment: PT CONTINUES TO HAVE CHEST PAIN . HER SERIAL CARDIACS ARE NEG. Departure - Departure Date of Disposition Decision: 02/09/17 Time of Disposition Decision: 23:46 DIAGNOSIS: Chest pain Disposition: ADMITTED INPATIENT 09 Certified Medical Emergency: Emergent Condition: Fair Referrals and Follow-Ups: MELISSA SANCHEZ [Primary Care Provider] - - Critical Care Note This patient required my direct & personal management of CC.: No Attestation - Physician/ LAURIE Attestation Patient care was provided by Advanced Practice Provider:: No The physician spent face to face time with patient:: Yes Advanced Practice Provider documentation review:: Supervising physician onsite and consulted in the evaluation and care of this patient. The physician did have a face to face encounter with the patient. This chart was documented by the indicated scribe, (Suzette Rosenthal, [place]) and accurately reflects the services I performed and decisions made by me, Stephen Cosme MD, as attested by the provider's signature.
[2017-02-10] MEDS: NITROGLYCERIN TOP SCH ×3 (00:19→09:40)
[2017-02-10] MEDS: MORPHINE IV PRN ×4 (01:30→22:00)
[2017-02-10] MEDS ORDERED: ZOFRAN IV PRN (06:22)
[2017-02-10] MEDS ORDERED: NS 1,000 ML IV SCH (06:22)
[2017-02-10] MEDS ORDERED: TYLENOL PO PRN (06:22)
[2017-02-10 06:59] LABS: HEMATOCRIT 34.1 % (37.0-47.0); MCHC 32.3 g/dL (33-37); MCV 99.1 FL (81-99); MPV 9.9 FL (7.4-10.4); RBC 3.44 XMIL (4.2-5.4)
[2017-02-10 08:22] LABS: AGAP 13; ALBUMIN 3.6 g/dL (3.5-5.0); ALKALINE PHOSPHATASE 93 U/L (32-104); BUN 24 mg/dL (8-22); CALCIUM 8.8 mg/dL (8.8-10.2); CHLORIDE 102 mmol/L (98-107); COSMO 288; GOT 16 U/L (10-30); GPT 16 U/L (10-36); HDL 43 mg/dL (45-65); LDL 55 mg/dL; SODIUM 141 mmol/L (136-145); TCO2 26 mmol/L (25-35); TRIGLYCERIDES 167 mg/dL (35-135); VLDL 33 mg/dL
[2017-02-10] MEDS ORDERED: MIRALAX PO PRN (10:28)
[2017-02-10] MEDS: LYRICA PO SCH (11:16)
[2017-02-10] MEDS: LASIX PO SCH (11:17)
[2017-02-10] MEDS: NORCO-7.5 PO PRN (17:02)
[2017-02-10] MEDS: ZANAFLEX PO PRN ×2 (17:03→21:53)
--- NOTE | 2017-02-10 19:01 | HISTORY AND PHYSICAL ---
CHIEF COMPLAINT: Chest pressure. HISTORY OF PRESENT ILLNESS: This is a 56-year-old female with a history of generalized vasculopathy including carotid artery disease, coronary artery disease, and peripheral artery disease, who presents with 3 months of chest pain. She states that the pain occurs spontaneously through the day, lasts about 30 minutes at a time. She does have nausea and shortness of breath at times with this. It is not consistent at rest or during exercise or movement. She is able to lay flat. She denies any dizziness, syncope, any cough, fever, chills. She was hospitalized in August 2016 for the same. At that time she underwent a cardiac catheterization per Dr. Amrit Lopez having found no obvious flow-limiting lesions as the etiology of her symptoms. Aggressive medical management was recommended. At that time she was discharged home with no further symptoms. She comes today and she states that she has had intermittent since symptoms since the heart catheterization. Her EKG revealed a sinus rhythm at a rate of [address]-T changes. Troponins are negative on multiple occasions. She was given aspirin, Lovenox, as well as Lortab, and admitted for further evaluation and treatment. PAST MEDICAL HISTORY: He has ischemic cardiomyopathy, congestive heart failure with systolic with EF of 20%, coronary artery disease, history of an [place], hypertension, hyperlipidemia, esophageal stricture, COPD, questionable history of DVTs and questionable CPKs. PAST SURGICAL HISTORY: Hysterectomy, coronary stenting, AICD placement, right carotid endarterectomy. SOCIAL HISTORY: He does smoke a pack a day. Denies alcohol or illicit drug use. FAMILY HISTORY: Both parents of an [place], mother at age 60, father unknown age. REVIEW OF SYSTEMS: A 14 point review of systems is discussed with patient with pertinent positives stated in the HPI. All others are negative. ALLERGIES: Phenergan which causes jerking. HOME MEDICATIONS: A list will be obtained. DIAGNOSTICS: WBC is 5.2 with a hemoglobin 11.4, hematocrit 35.2, and platelets of 250,000. Sodium is 143, potassium 4.1, BUN 23, creatinine 1.8 with a glucose of 83. Troponin negative on multiple occasions. Urinalysis is essentially negative. ASSESSMENT AND PLAN: 1. Bilateral shoulder and back pain. Patient does describe this as an aching kind of pain that is sometimes sharp in nature. It is aggravated by movement. She states that it starts in the last shoulder, goes across her back to the right shoulder, and wraps around each arm just to about the mid clavicle. The pain is relieved if she stands still and does not move and does not take a deep breath. We will continue to monitor telemetry. Will identify her home medications and continue. She did undergo a heart catheterization in August 2016, so if she rules out, hopefully she can follow up with Dr. Whitfield on an outpatient basis. 2. Renal insufficiency. Her creatinine is 1.8. In review of her records, she has been 1.1-1.8 over the past few months. We will continue to hydrate and follow. Hold any renal toxic medications. 3. Congestive heart failure history of. She appears to be euvolemic. Will continue to follow daily weights. We will continue her home medications. 4. Coronary artery disease. As stated above we will continue her home medications. 5. Hypertension as stated above. This is stable. 6. Hyperlipidemia. Will continue high-dose statin. 7. Chronic obstructive pulmonary disease, not in exacerbation. Aware. 8. Nicotine dependence. 9. Deep vein thrombosis prophylaxis. We will use Lovenox. 10. Further treatments pending hospital course. Dictated by LONDON Moe for Tylor Juarez MD cc: LONDON Moe MD
[2017-02-10] MEDS: KLOR-CON PO SCH (20:30)
[2017-02-10] MEDS: DESYREL PO SCH (20:30)
[2017-02-10] MEDS: TRANDATE PO SCH (20:30)
[2017-02-11] MEDS: MORPHINE IV PRN ×5 (01:38→16:33)
[2017-02-11] MEDS: PRILOSEC PO SCH (05:33)
--- NOTE | 2017-02-11 05:51 | HISTORY AND PHYSICAL ---
HISTORY OF PRESENT ILLNESS: Patient seen and examined by myself. Please see full note, as discussed by nurse practitioner. The patient was seen the hospital room. She complains of chest pain, although after further discussion, notes that she is having bilateral shoulder pain. It does sometimes radiate around her chest wall to her chest. Denies any current fevers or chills. Denies any headaches or blurry vision. PHYSICAL EXAMINATION: VITAL SIGNS: She is afebrile. Vital signs are stable. GENERAL: She is awake, alert, oriented, sitting up on the side of the bed, in no current respiratory distress. CARDIOVASCULAR: Regular rate. CHEST: Relatively clear. PLAN: We will continue to keep in the hospital overnight. We will rule out for a myocardial infarction. Consult with Cardiology, as she does have a history of coronary disease, but this certainly is an atypical pain at best. cc: Tylor Juarez MD
[2017-02-11 06:00] LABS: HEMATOCRIT 32.5 % (37.0-47.0); HEMOGLOBIN 10.4 g/dL (12.0-16.0); MCH 31.7 PG (27-31); MCV 99.1 FL (81-99); RBC 3.28 XMIL (4.2-5.4)
[2017-02-11 06:27] LABS: ALBUMIN 3.6 g/dL (3.5-5.0); CALCIUM 8.8 mg/dL (8.8-10.2); POTASSIUM 3.9 mmol/L (3.5-5.1); TOTAL BILIRUBIN 0.6 mg/dL (0.20-1.00); TOTAL PROTEIN 6.8 g/dL (6.3-8.3)
[2017-02-11] MEDS: NORCO-7.5 PO PRN ×2 (06:49→20:23)
[2017-02-11] MEDS ORDERED: LIPITOR PO SCH (09:00)
[2017-02-11] MEDS: LASIX PO SCH (09:30)
[2017-02-11] MEDS: ENTRESTO 24 MG-26 MG TABLET PO SCH (09:30)
[2017-02-11] MEDS: KLOR-CON PO SCH ×2 (09:30→20:23)
[2017-02-11] MEDS: TRANDATE PO SCH ×2 (09:31→20:23)
[2017-02-11] MEDS: PLAVIX PO SCH (09:31)
[2017-02-11] MEDS: LYRICA PO SCH (09:31)
[2017-02-11] MEDS: FLONASE NAS SCH ×2 (10:30→20:43)
[2017-02-11] MEDS ORDERED: TUMS PO ONE (14:39)
--- NOTE | 2017-02-11 15:26 | PROGRESS NOTE ---
DATE: 02/11/2017 SUBJECTIVE: Ms. Reyes states that she is feeling some better. She has been sitting up in the chair a good part of the day. She denies any pain at present. OBJECTIVE: Vital Signs: Blood pressure is 135/80 with a heart rate of 79, respirations are 18, temperature is 97.8 degrees with room air saturations of 97%. Cardiovascular: Regular rate and rhythm. S1, S2 appreciated. Pulmonary: Breath sounds are clear with no increased work of breathing noted. Gastrointestinal: Abdomen is soft, nontender, nondistended with bowel sounds in all 4 quadrants. Extremities: No clubbing, cyanosis, or edema. Calves are nontender. Pulses are palpable x4. Neurologic: She is alert and oriented x3. LABORATORIES: WBC is 4.1, with hemoglobin 10.4, hematocrit 32.5 and platelets of 241,000. Sodium is 139, potassium 3.9, BUN 25, creatinine 1.4 with a glucose of 113. ASSESSMENT AND PLAN: 1. Bilateral shoulder and back pain. 2. Renal insufficiency with her baseline creatinine being 1.1 to 1.4. 3. History of congestive heart failure. 4. Coronary artery disease, history of. 5. Hyperlipidemia. 6. COPD, not in exacerbation. PLAN: We will continue with the current regimen. Monitor patient's labs. We will wean her oxygen off. We will obtain an ultrasound of the abdomen, although she did eat breakfast early this morning, so we will keep her NPO after midnight, do ultrasound of the abdomen in the morning. We will continue to monitor telemetry. Dictated by LONDON Moe for Tylor Juarez MD cc: LONDON Moe MD
[2017-02-11] MEDS ORDERED: MORPHINE IV PRN (16:40)
[2017-02-11] MEDS: DESYREL PO SCH (20:23)
[2017-02-12] MEDS: PRILOSEC PO SCH (06:43)
[2017-02-12] MEDS: NORCO-7.5 PO PRN ×2 (07:48→14:13)
--- NOTE | 2017-02-12 08:17 | PROGRESS NOTE ---
DATE: 02/11/2017 ADDENDUM REPORT Patient seen and examined by myself. Discussed with and full note dictated by nurse practitioner. The patient states she is still having some chest pain, but it is definitely atypical in nature. She has not really been out of bed. On physical, vital signs are stable. Physical exam is essentially benign. She is awake alert. She is in no distress. PLAN: We will watch patient the hospital overnight, adjust medications. Hopefully, can discharge her in the a.m. cc: Tylor Juarez MD
[2017-02-12] MEDS ORDERED: PLETAL PO SCH (09:00)
[2017-02-12] MEDS: BUSPAR PO SCH ×2 (10:34→14:02)
[2017-02-12] MEDS: LASIX PO SCH (10:34)
[2017-02-12] MEDS: LYRICA PO SCH (10:35)
[2017-02-12] MEDS: TRANDATE PO SCH (10:35)
[2017-02-12] MEDS: PLAVIX PO SCH (10:35)
[2017-02-12] MEDS: ENTRESTO 24 MG-26 MG TABLET PO SCH (10:35)
[2017-02-12] MEDS: KLOR-CON PO SCH (10:35)
[2017-02-12] MEDS: FLONASE NAS SCH (10:39)
--- NOTE | 2017-02-12 10:46 | Diag Imaging Result Doc PS360 ---
US ABDOMEN-COMPLETE - 02/12/2017 INDICATION: ABD PAIN TECHNIQUE: Hagan scale, color Doppler, and duplex evaluation of the abdomen was performed. COMPARISON: None FINDINGS: The liver appears normal in size and echotexture. No focal masses are appreciated. It is mildly enlarged measuring 19.4 cm longitudinally. The IVC and aorta appear normal. The pancreas is unremarkable. The gallbladder is free of stones and sludge has a normal caliber wall. The common bile duct measures 5.5 mm. The portal vein is patent with hepatopetal flow. Spleen is unremarkable. There is stable 3 cm simple cyst left kidney. The right kidney appears normal. There is no hydronephrosis. No free fluid is appreciated. IMPRESSION: Mild hepatic enlargement. Stable left renal cyst. No cholelithiasis. Electronically signed by Queta Pfeiffer 02/12/2017 10:44 AM
[2017-02-12 11:20] VITALS: BP 111/65
--- NOTE | 2017-02-12 11:29 | Diag Imaging Result Doc PS360 ---
EXAM: CHEST-2 VIEWS HISTORY: cough, CP TECHNIQUE: PA and Lateral chest x-ray COMPARISON: 02/09/2017 FINDINGS: There is cardiomegaly. There is a left-sided pacemaker. The pulmonary vasculature is not congested. No acute infiltrate, effusion, or pneumothorax is appreciated. There is stable fibrosis. There is stable mild wedging of a lower thoracic vertebral body. IMPRESSION: Cardiomegaly. Pacemaker. Mild fibrosis. No acute cardiopulmonary abnormality is identified. Electronically signed by Queta Pfeiffer 02/12/2017 11:27 AM
[2017-02-12] MEDS ORDERED: LIPITOR PO SCH (21:00)
--- NOTE | 2017-02-13 17:07 | DISCHARGE SUMMARY ---
ADMISSION DATE: 02/09/2017 DISCHARGE DATE: 02/12/2017 Date of discharge 02/12/2017. DIAGNOSES: 1. Bilateral shoulder and back pain. Chronic. 2. Renal insufficiency with a creatinine of 1.3-1.8 3. Congestive heart failure history of with echocardiogram performed 06/11/2016 revealing an ejection fraction of 20% with severe global hypokinesis. 4. Coronary artery disease. 5. Hypertension. 6. Hyperlipidemia. 7. Chronic obstructive pulmonary disease not in exacerbation. 8. Nicotine dependence. HOSPITAL COURSE: Ms Reyes presented to the hospital complaining of pain that she stated began just at her left shoulder. She stated went around across her back and looped around to the other shoulder. She did state that she has had this pain for 3 months and it starts and stops spontaneously. It is not consistent with exercise. rest or movement. In fact she was hospitalized in August 2016, underwent a heart catheterization having found no obvious flow limiting lesions. We identified, continued her appropriate home medications. At times she did complain of some chest pain although it was epigastric to her lower rib. Abdominal ultrasound was performed which was essentially negative. PHYSICAL EXAMINATION: Cardiovascular: Regular rate and rhythm. S1 and S2 appreciated. Pulmonary: Breath sounds are clear with no increased work of breathing noted. They are diminished at the bases. Gastrointestinal: Abdomen soft, nondistended, nontender with bowel sounds in all 4 quadrants. Extremities: No clubbing, cyanosis, or edema. Calves nontender. Pulses palpable x4. Neurologic: She is alert and oriented x3. Cranial nerves 2-12 grossly intact next Discharge Vital Signs: Blood pressure 111/65 with a heart rate of 70, respirations 18, temperature 98.5 degrees oral with room air saturations of 99%. DISCHARGE MEDICATIONS: BuSpar 10 t.i.d., Lipitor 80 mg daily, MiraLAX 17 g b.i.d., trazodone 100 at bedtime, labetalol 200 b.i.d., Entresto 24/ one tablet daily, Lyrica 300 mg daily, [place] 7.5 t.i.d. p.r.n., Plavix 75 mg daily, Prilosec 20 daily, Zanaflex 4 mg t.i.d. p.r.n. Pletal 100 mg b.i.d., potassium chloride 20 mEq b.i.d., Lasix 40 mg daily, Flonase nose spray. DISCHARGE FOLLOWUP: She is to see Emerald Jones within the week, at this time further evaluation can be discussed. She is to call sooner if needed for any questions or concerns. She is being discharged home in stable condition with family members. TIME SPENT: This is a greater than 30 minute discharge. Dictated by LONDON Moe for Tylor Juarez MD cc: LONDON Moe MD [facility]
--- NOTE | 2017-02-15 03:42 | PROGRESS NOTE ---
DATE: 02/12/2017 ADDENDUM: Patient was seen and examined by myself. Discussed with and full note dictated by nurse practitioner. Patient notes that she is still having shoulder pain, leg pain, back pain and arm pain. Denies any true left-sided only chest pain. Denies any shortness of breath. PHYSICAL: General: Patient is awake, alert, she is in no distress. Vital signs: Are stable. CV: Is regular rate and rhythm. No murmurs. The patient will be discharged home today. She certainly does not appear to be having cardiac- related chest pain. She has recently undergone a full cardiac workup that was negative. She will follow up outpatient with her primary care physician. cc: Tylor Juarez MD
--- NOTE | 2017-03-02 18:49 | ED EKG INTERP ---
This chart was entered by Suzette Rosenthal Scribe, acting as scribe for Murray Queen MD. EKG Interpretation - EKG Time of EKG reading by physician:: 16:53 EKG Read and Signed by:: Murray Queen EKG Interpretation (*Must complete 3 of following elements*): Abnormal Rate: 75 Rhythm: sinus rhythm with premature atrial complexes with aberrant conduction QRS: LVH Prior EKG Comparison: unchanged from prior Comments: Rt atrial enlargement, LHV, cannot rule out septal infarct/inf infarct Attestation - Physician/ LAURIE Attestation Patient care was provided by Advanced Practice Provider:: No The physician spent face to face time with patient:: No Advanced Practice Provider documentation review:: Supervising physician onsite and consulted in the evaluation and care of this patient. The physician did not have a face to face encounter with the patient. This chart was documented by the indicated scribe, (Suzette Rosenthal Scribe) and accurately reflects the services I performed and decisions made by me, Murray Queen MD, as attested by the provider's signature.
== END 2017-02-12 16:05 | disposition home or self-care (01) ==
LOC: P.MEDSURG 16:40 → P.ED 16:40 → OBSVTOIN 16:41
PROVIDERS: ATTEND Family Medicine